=== PATIENT | female | born 1990 | race Caucasian/White ===

== ENCOUNTER 2016-05-14 17:53 | Emergency (ER) | payer OTHER ==
[~2016-05-14] VITALS: Wt 104.3 kg
[~2016-05-14 17:53] MED LIST: 'PARAFON FORTE500 M1 PO; ACETAMINOPHEN-H1 TA2 PO; ACYCLOVIR800 MG PO; ALBUTEROL0.09 MG/A2 IH; ALBUTEROL0.09 MG/A2 INH; ANAPROX DS550 MG PO; ANTIBIOTIC O500 U/GM T; ATIVAN1 MG PO; AUGMENTIN 875 M1 TAB PO; AVELOX400 MG PO; AVPAK AZITHROM250 M1 PO; BACTRIM DS 8001 TA1 PO; BIAXIN500 MG PO; CATAFLAM50 MG PO; CIPRO500 MG PO; CIPROFLOXACIN500 MG PO; CLARITIN10 MG PO; CLEOCIN150 MG PO; CLEOCIN40 GM PO; CLINDAMYCIN HC300 MG PO; COLACE100 MG PO; COMBIVENT1 ARO IH; DIFLUCAN100 MG PO; DIFLUCAN150 MG PO; DOXYCYCLINE MO100 MG PO; DOXYCYCLINE100 M2 PO; EC NAPROSYN500 MG PO; EES400 MG PO; FLEXERIL5 MG PO; HYDROCODONE BIT1 T11 PO; IBU-8800 MG PO; IRON325 M1 PO; KEFLEX500 MG PO; LABETALOL100 MG PO; LASIX10 MG/ML PO; LATU20TA PO; LOMOTIL 0.025 M1 TA1 PO; MACROBID100 M1 PO; MEDROL DOSEPAK4 MG PO; MOTRIN800 MG PO; NAPROSYN500 MG PO; NEURONTIN300 MG PO; NKHM; NKHM PO; NORCO 325 MG-51 TAB PO; NORCO 5-325 TA1 EACH PO; PERCOCET 325 MG1 TA2 PO; PERIDEX 480 ML480 ML PO; PHENERGAN W/ DE30 ML PO; PREDNISONE20 M1 PO; PREDNISONE20 MG PO; PRILOSEC10 MG PO; PROAIR HFA0.09 MG/AC INH; PROVENTIL0.09 MG/A1 INH; PROVENTIL0.09 MG/AC IH; PYRIDIUM200 MG PO; QVAR0.08 MG/AC INH; ROBITUSSIN AC 110 ML PO; SUDAFED60 MG PO; TESSALON PERLE200 MG PO; TOBRADEX 0.1%-0.5 ML OPH; TOBREX OPHTH S2.5 ML OPH; TRAMADOL HCL50 MG PO; ULTRAM50 MG PO; VIC-FORTE CAPSUL1 MG PO; VICO75300 PO; VICODIN 5-3001 EACH PO; ZITHROMAX Z PA250 MG PO; ZITHROMAX250 MG PO; ZOFRAN ODT4 MG PO; ZOFRAN ODT4 MG SL; ZYRTEC10 M2 PO; Zofran4 MG PO
[2016-05-14 19:20] LABS: BASO % 0.2 % (0.0-1.0); EOS # 0.4 10*3/uL (0.0-0.4); EOS % 2.8 % (1.0-4.0); HEMATOCRIT 44.8 % (37.0-47.0); HEMOGLOBIN 15.1 g/dl (12.0-16.0); LYMPH # 2.1 10*3/uL (1.3-4.4); LYMPH % 16.9 % (27.0-41.0); MEAN CELL VOLUME 84.5 fl (81.0-99.0); MEAN CORPUSCULAR HGB 28.5 pg (27.0-31.0); MEAN CORPUSCULAR HGB CONC 33.7 g/dl (33.0-37.0); MEAN PLATELET VOLUME 10.7 fl (9.6-12.3); MONO # 0.6 10*3/uL (0.1-1.0); MONO % 4.8 % (3.0-9.0); NEUT # 9.5 10*3/uL (2.3-7.9); PLATELET COUNT AUTOMATED 183 10*3/uL (130-400); WHITE BLOOD COUNT 12.6 10*3/uL (4.8-10.8)
[2016-05-14 19:48] LABS: ALBUMIN 3.7 gm/dl (3.1-4.5); ALKALINE PHOSPHATASE 92 U/L (45-117); BILIRUBIN, TOTAL 0.5 mg/dl (0.2-1.0); BUN 10 mg/dl (7-24); CARBON DIOXIDE 26 mmol/L (21-32); CHLORIDE 108 mmol/L (98-107); EST GLOM FILT AFRICAN AMERICAN > 60 ml/min; GLUCOSE 86 mg/dL (65-99); POTASSIUM 4.1 mmol/L (3.5-5.1); SGOT/AST 31 IU/L (3-35); SGPT/ALT 34 U/L (12-78); SODIUM 142 mmol/L (136-145); TOTAL PROTEIN 7.1 gm/dL (6.4-8.2)
[2016-05-14] MEDS ORDERED: ZOFRAN ODT4 MG SL (20:12)
[2016-07-23] MEDS ORDERED: MACROBID100 M1 PO (10:46)
[2016-07-23] MEDS ORDERED: ZOFRAN ODT4 MG SL (10:46)
== END 2016-05-14 20:25 | disposition home or self-care (01) ==
LOC: ED 17:53
PROVIDERS: Registered Nurse
DX: K52.9 Noninfective gastroenteritis and colitis, unspecified (principal); F41.9 Anxiety disorder, unspecified; J45.909 Unspecified asthma, uncomplicated; F17.200 Nicotine dependence, unspecified, uncomplicated; Z88.0 Allergy status to penicillin; Z88.1 Allergy status to other antibiotic agents; Z88.6 Allergy status to analgesic agent

== ENCOUNTER 2016-08-22 09:07 | Emergency (ER) | payer OTHER ==
[2016-08-22 09:41] LABS: BILIRUBIN NEGATIVE (NEGATIVE); BLOOD NEGATIVE (NEGATIVE); CLARITY CLEAR (CLEAR); COLOR YELLOW (YELLOW); GLUCOSE NEGATIVE (NEGATIVE); KETONE NEGATIVE (NEGATIVE); LEUKO ESTERASE NEGATIVE (NEGATIVE); NITRITE NEGATIVE (NEGATIVE); PROTEIN NEGATIVE (NEGATIVE); SPECIFIC GRAVITY <= 1.005 (1.005-1.030); UROBILINOGEN 0.2 E.U./dl (0.2-1.0)
[2016-08-22 09:51] LABS: BACTERIA TRACE; RBC 0-2 rbc/hpf (0-2); URINE REFLEX COMMENT NO (NO); WBC 0-2 wbc/hpf (0-5)
[2016-08-22] MEDS ORDERED: PREDNISONE10 MG PO (10:56)
[2016-08-22] MEDS ORDERED: ROBITUSSIN DM 105 ML PO (10:56)
== END 2016-08-22 11:13 | disposition home or self-care (01) ==
LOC: ED 09:07
PROVIDERS: Physician Assistant
DX: J40 Bronchitis, not specified as acute or chronic (principal); R30.0 Dysuria; F17.200 Nicotine dependence, unspecified, uncomplicated; Z98.51 Tubal ligation status; Z98.890 Other specified postprocedural states; Z90.49 Acquired absence of other specified parts of digestive tract; Z88.1 Allergy status to other antibiotic agents; Z88.6 Allergy status to analgesic agent; Z88.8 Allergy status to other drugs, medicaments and biological substances; Z88.0 Allergy status to penicillin

== ENCOUNTER 2016-08-28 09:39 | Emergency (ER) | payer OTHER ==
[~2016-08-28] VITALS: Ht 162.5 cm; Wt 104.3 kg
[~2016-08-28 09:39] MED LIST changes: +PREDNISONE10 MG PO; +ROBITUSSIN DM 105 ML PO
[2016-08-28] MEDS ORDERED: DOXYCYCLINE100 M3 PO (09:56)
[2016-08-29] MEDS ORDERED: HYDR25T PO (19:46)
[2016-08-29] MEDS ORDERED: PRILOSEC20 M1 PO (19:46)
[2016-08-29] MEDS ORDERED: ZYRTEC10 MG PO (19:47)
[2016-08-29] MEDS ORDERED: CARAFATE1 G1 PO (19:47)
[2016-08-29] MEDS ORDERED: ZANTAC 150150 MG PO (19:48)
[2016-08-29] MEDS ORDERED: Zofran4 MG PO (19:48)
== END 2016-08-28 10:10 | disposition home or self-care (01) ==
LOC: ED 09:39
DX: L02.416 Cutaneous abscess of left lower limb (principal); F41.9 Anxiety disorder, unspecified; J45.909 Unspecified asthma, uncomplicated; F17.200 Nicotine dependence, unspecified, uncomplicated; Z88.0 Allergy status to penicillin; Z88.1 Allergy status to other antibiotic agents; Z88.6 Allergy status to analgesic agent

== ENCOUNTER 2016-08-29 16:17 | Inpatient (IN) | payer OTHER ==
[~2016-08-29] VITALS: Ht 162.6 cm; Wt 104.0 kg
--- NOTE | ~2016-08-29 | O ---
[place], [place] OPERATIVE NOTE NAME: PENNY VARELA [facility] [id number] UNIT #: [id number] ROOM: [facility] DOCTOR: GET MCCALL MD BIRTHDATE: [birth year] DATE: 08/30/16 PREOPERATIVE DIAGNOSIS: Left groin abscess. POSTOPERATIVE DIAGNOSIS: Left groin abscess. PROCEDURE: Incision and drainage of left groin abscess. SURGEON: Get Mccall MD V BELT COVERER: PGY1. ANESTHESIA: MAC. INDICATIONS: This is a 26-year-old lady with a history of a left groin abscess who is here for the above-mentioned procedure. The procedure and its complications were explained to the patient in detail and she agreed to proceed. DESCRIPTION OF PROCEDURE: After identifying the patient, the patient was brought to the operating suite and laid in the supine position. After IV sedation was administered, the left extremity was flexed at the knee and placed in an abducted position. It was then painted and draped in the usual sterile fashion. A time-out procedure was called. An incision in the region of the most fluctuant area of the abscess was made. The skin and the subcutaneous tissue was incised and the abscess cavity was entered. A specimen of pus was sent for culture and sensitivity. Thereafter, the cavity of the abscess was then irrigated with saline and then packed with the help of half inch iodoform. A dressing was placed. The patient tolerated the procedure well. There were no complications and was taken to the recovery room in a stable fashion. Dr. Get Mccall, the attending surgeon, was present throughout the operating case. GET MCCALL MD CM:OPRECORD:OPERATIVE NOTE [id number] GET MCCALL MD 09/03/16 1435 RHONDA BOYCE [facility].R
[~2016-08-29 16:17] MED LIST changes: +DOXYCYCLINE100 M3 PO
[2016-08-29 16:27] VITALS: BP 122/80
[2016-08-29 17:17] LABS: BASO # 0.1 10*3/uL (0.0-0.1); BASO % 0.3 % (0.0-1.0); EOS # 0.2 10*3/uL (0.0-0.4); EOS % 0.8 % (1.0-4.0); HEMATOCRIT 46.3 % (37.0-47.0); HEMOGLOBIN 15.6 g/dl (12.0-16.0); IG # 0.1 10*3/uL (0.0-0.1); LYMPH # 2.2 10*3/uL (1.3-4.4); LYMPH % 11.4 % (27.0-41.0); MEAN CELL VOLUME 85.6 fl (81.0-99.0); MEAN CORPUSCULAR HGB 28.8 pg (27.0-31.0); MEAN CORPUSCULAR HGB CONC 33.7 g/dl (33.0-37.0); MEAN PLATELET VOLUME 10.7 fl (9.6-12.3); MONO # 1.2 10*3/uL (0.1-1.0); MONO % 6.1 % (3.0-9.0); NEUT # 15.5 10*3/uL (2.3-7.9); NEUT % 80.7 % (47.0-73.0); PLATELET COUNT AUTOMATED 205 10*3/uL (130-400); RED BLOOD COUNT 5.41 10*6/uL (4.10-5.10); RED CELL DISTRI WIDTH 12.8 % (0-14.5); WHITE BLOOD COUNT 19.2 10*3/uL (4.8-10.8)
[2016-08-29 17:34] LABS: ALBUMIN 3.8 gm/dl (3.1-4.5); BILIRUBIN, TOTAL 0.8 mg/dl (0.2-1.0); BUN 7 mg/dl (7-24); CARBON DIOXIDE 29 mmol/L (21-32); CHLORIDE 100 mmol/L (98-107); EST GLOM FILT AFRICAN AMERICAN > 60 ml/min; GLUCOSE 83 mg/dL (65-99); POTASSIUM 4.2 mmol/L (3.5-5.1); SGOT/AST 36 IU/L (3-35); SGPT/ALT 59 U/L (12-78); SODIUM 139 mmol/L (136-145); TOTAL PROTEIN 7.6 gm/dL (6.4-8.2)
[2016-08-29 17:36] LABS: ALKALINE PHOSPHATASE 133 U/L (45-117)
[2016-08-29 19:30] VITALS: BP 130/60
[2016-08-29] MEDS ORDERED: PRILOSEC20 M1 PO (19:46)
[2016-08-29] MEDS ORDERED: HYDR25T PO (19:46)
[2016-08-29] MEDS ORDERED: CARAFATE1 G1 PO (19:47)
[2016-08-29] MEDS ORDERED: ZYRTEC10 MG PO (19:47)
[2016-08-29] MEDS ORDERED: Zofran4 MG PO (19:48)
[2016-08-29] MEDS ORDERED: ZANTAC 150150 MG PO (19:48)
[2016-08-30] VITALS (7 sets, daily range): BP systolic 107–153; BP diastolic 55–85
[2016-08-30 06:21] LABS: BASO # 0.1 10*3/uL (0.0-0.1); BASO % 0.3 % (0.0-1.0); EOS # 0.3 10*3/uL (0.0-0.4); EOS % 1.5 % (1.0-4.0); HEMATOCRIT 41.5 % (37.0-47.0); HEMOGLOBIN 13.7 g/dl (12.0-16.0); IG # 0.1 10*3/uL (0.0-0.1); LYMPH % 18.1 % (27.0-41.0); MEAN CELL VOLUME 87.4 fl (81.0-99.0); MEAN CORPUSCULAR HGB 28.8 pg (27.0-31.0); MEAN PLATELET VOLUME 11.2 fl (9.6-12.3); MONO # 1.3 10*3/uL (0.1-1.0); MONO % 8.1 % (3.0-9.0); NEUT # 11.8 10*3/uL (2.3-7.9); NEUT % 71.2 % (47.0-73.0); PLATELET COUNT AUTOMATED 175 10*3/uL (130-400); RED BLOOD COUNT 4.75 10*6/uL (4.10-5.10); RED CELL DISTRI WIDTH 12.7 % (0-14.5); WHITE BLOOD COUNT 16.5 10*3/uL (4.8-10.8)
[2016-08-30 06:29] LABS: PROTHROMBIN TIME 10.2 SECONDS (9.0-12.4)
[2016-08-30 06:30] LABS: HEMOGLOBIN A1c 4.8 % (4.8-5.6)
[2016-08-30 06:53] LABS: ALBUMIN 3.1 gm/dl (3.1-4.5); ALKALINE PHOSPHATASE 120 U/L (45-117); BILIRUBIN, TOTAL 0.7 mg/dl (0.2-1.0); BUN 8 mg/dl (7-24); CARBON DIOXIDE 32 mmol/L (21-32); CHLORIDE 104 mmol/L (98-107); CHOLESTEROL 109 mg/dL (<200); EST GLOM FILT AFRICAN AMERICAN > 60 ml/min; GLUCOSE 89 mg/dL (65-99); HDL CHOLESTEROL 45 mg/dl (40-60); LDL CHOLESTEROL 41 mg/dL (9-159); MAGNESIUM 1.8 mg/dL (1.5-2.1); PHOSPHOROUS 3.4 mg/dL (2.5-4.9); SGOT/AST 26 IU/L (3-35); SGPT/ALT 49 U/L (12-78); SODIUM 141 mmol/L (136-145); TOTAL PROTEIN 6.5 gm/dL (6.4-8.2); TRIGLYCERIDES 114 mg/dl (<150); VLDL CHOLESTEROL 23 mg/dL (6-40)
[2016-08-30 07:33] LABS: FOLIC ACID 5.66 ng/mL (>5.38); VITAMIN D, 25-HYDROXY 23.7 ng/mL (30-100)
[2016-08-31] VITALS: BP 153/68
[2016-08-31 08:00] VITALS: BP 126/62
[2016-08-31 08:51] LABS: BASO % 0.2 % (0.0-1.0); EOS # 0.2 10*3/uL (0.0-0.4); EOS % 1.4 % (1.0-4.0); HEMATOCRIT 40.4 % (37.0-47.0); HEMOGLOBIN 13.4 g/dl (12.0-16.0); IG # 0.1 10*3/uL (0.0-0.1); LYMPH # 2.6 10*3/uL (1.3-4.4); LYMPH % 17.6 % (27.0-41.0); MEAN CELL VOLUME 87.3 fl (81.0-99.0); MEAN CORPUSCULAR HGB 28.9 pg (27.0-31.0); MEAN CORPUSCULAR HGB CONC 33.2 g/dl (33.0-37.0); MEAN PLATELET VOLUME 10.8 fl (9.6-12.3); MONO # 1.1 10*3/uL (0.1-1.0); MONO % 7.7 % (3.0-9.0); NEUT # 10.7 10*3/uL (2.3-7.9); NEUT % 72.3 % (47.0-73.0); PLATELET COUNT AUTOMATED 189 10*3/uL (130-400); RED BLOOD COUNT 4.63 10*6/uL (4.10-5.10); RED CELL DISTRI WIDTH 12.7 % (0-14.5); WHITE BLOOD COUNT 14.7 10*3/uL (4.8-10.8)
[2016-08-31 09:02] LABS: BUN 6 mg/dl (7-24); CARBON DIOXIDE 28 mmol/L (21-32); CHLORIDE 107 mmol/L (98-107); EST GLOM FILT AFRICAN AMERICAN > 60 ml/min; GLUCOSE 85 mg/dL (65-99); SODIUM 142 mmol/L (136-145)
[2016-08-31] MEDS ORDERED: CEPHALEXIN500 M1 PO (11:10)
== END 2016-08-31 12:42 | disposition home or self-care (01) | DRG 580 ==
LOC: ED 16:17 → 4E 18:18 → EDHOLD 18:18 → 4E 18:45
PROVIDERS: Family Medicine; Internal Medicine; Physician Assistant
PROC: 0H99XZZ Drainage of Perineum Skin, External Approach (ICD-10-PCS; principal; 2016-08-30)
DX: L03.314 Cellulitis of groin (principal); E44.0 Moderate protein-calorie malnutrition; K75.4 Autoimmune hepatitis; E83.51 Hypocalcemia; E66.01 Morbid (severe) obesity due to excess calories; L02.214 Cutaneous abscess of groin; D72.829 Elevated white blood cell count, unspecified; F41.9 Anxiety disorder, unspecified; I10 Essential (primary) hypertension; J45.909 Unspecified asthma, uncomplicated; R53.82 Chronic fatigue, unspecified; F17.210 Nicotine dependence, cigarettes, uncomplicated; Z68.39 Body mass index [BMI] 39.0-39.9, adult; Z71.6 Tobacco abuse counseling; Z98.51 Tubal ligation status; Z98.891 History of uterine scar from previous surgery; Z90.49 Acquired absence of other specified parts of digestive tract; Z82.49 Family history of ischemic heart disease and other diseases of the circulatory system; Z81.2 Family history of tobacco abuse and dependence; Z82.3 Family history of stroke; Z80.8 Family history of malignant neoplasm of other organs or systems; Z88.0 Allergy status to penicillin; Z88.1 Allergy status to other antibiotic agents; Z88.2 Allergy status to sulfonamides; Z88.8 Allergy status to other drugs, medicaments and biological substances; Z79.899 Other long term (current) drug therapy

== ENCOUNTER 2016-09-02 10:47 | Emergency (ER) | payer OTHER ==
[~2016-09-02] VITALS: Ht 162.5 cm; Wt 104.3 kg
[~2016-09-02 10:47] MED LIST changes: +CARAFATE1 G1 PO; +CEPHALEXIN500 M1 PO; +HYDR25T PO; +PRILOSEC20 M1 PO; +ZANTAC 150150 MG PO; +ZYRTEC10 MG PO
[2016-09-02 11:21] LABS: BASO % 0.3 % (0.0-1.0); EOS # 0.1 10*3/uL (0.0-0.4); EOS % 0.9 % (1.0-4.0); HEMATOCRIT 44.5 % (37.0-47.0); HEMOGLOBIN 14.8 g/dl (12.0-16.0); IG # 0.1 10*3/uL (0.0-0.1); LYMPH # 1.8 10*3/uL (1.3-4.4); LYMPH % 13.1 % (27.0-41.0); MEAN CELL VOLUME 86.2 fl (81.0-99.0); MEAN CORPUSCULAR HGB 28.7 pg (27.0-31.0); MEAN CORPUSCULAR HGB CONC 33.3 g/dl (33.0-37.0); MEAN PLATELET VOLUME 10.9 fl (9.6-12.3); MONO # 0.8 10*3/uL (0.1-1.0); MONO % 5.8 % (3.0-9.0); NEUT # 10.9 10*3/uL (2.3-7.9); NEUT % 79.3 % (47.0-73.0); PLATELET COUNT AUTOMATED 225 10*3/uL (130-400); RED BLOOD COUNT 5.16 10*6/uL (4.10-5.10); RED CELL DISTRI WIDTH 12.4 % (0-14.5); WHITE BLOOD COUNT 13.7 10*3/uL (4.8-10.8)
[2016-09-02 11:36] LABS: ALBUMIN 3.6 gm/dl (3.1-4.5); ALKALINE PHOSPHATASE 175 U/L (45-117); BILIRUBIN, TOTAL 0.4 mg/dl (0.2-1.0); BUN 7 mg/dl (7-24); CARBON DIOXIDE 26 mmol/L (21-32); CHLORIDE 108 mmol/L (98-107); EST GLOM FILT AFRICAN AMERICAN > 60 ml/min; GLUCOSE 97 mg/dL (65-99); POTASSIUM 3.8 mmol/L (3.5-5.1); SGOT/AST 34 IU/L (3-35); SGPT/ALT 55 U/L (12-78); SODIUM 144 mmol/L (136-145); TOTAL PROTEIN 7.8 gm/dL (6.4-8.2)
[2016-09-02] MEDS ORDERED: DIFLUCAN150 MG PO (12:09)
[2016-09-02] MEDS ORDERED: BACTRIM DS 8001 TA1 PO (12:09)
== END 2016-09-02 12:14 | disposition home or self-care (01) ==
LOC: ED 10:47
PROVIDERS: Nurse Practitioner Family
DX: Z48.01 Encounter for change or removal of surgical wound dressing (principal); R03.0 Elevated blood-pressure reading, without diagnosis of hypertension; F41.9 Anxiety disorder, unspecified; J45.909 Unspecified asthma, uncomplicated; I10 Essential (primary) hypertension; F17.200 Nicotine dependence, unspecified, uncomplicated; Z79.899 Other long term (current) drug therapy; Z88.0 Allergy status to penicillin; Z88.1 Allergy status to other antibiotic agents; Z88.6 Allergy status to analgesic agent

== ENCOUNTER 2016-12-20 20:35 | Emergency (ER) | payer OTHER ==
[~2016-12-20] VITALS: Ht 162.5 cm; Wt 104.3 kg
[2016-12-20] MEDS ORDERED: CLARITIN10 MG PO (20:51)
[2016-12-20] MEDS ORDERED: 24 HOUR ALLER15.8 ML NAS (20:51)
== END 2016-12-20 22:39 | disposition home or self-care (01) ==
LOC: ED 20:35
DX: J30.2 Other seasonal allergic rhinitis (principal); H57.8 Other specified disorders of eye and adnexa; M54.9 Dorsalgia, unspecified; F17.200 Nicotine dependence, unspecified, uncomplicated; Z88.0 Allergy status to penicillin; Z88.1 Allergy status to other antibiotic agents; Z88.6 Allergy status to analgesic agent; Z79.899 Other long term (current) drug therapy

== ENCOUNTER 2017-02-25 08:25 | Emergency (ER) | payer OTHER ==
[~2017-02-25] VITALS: Ht 162.5 cm; Wt 106.6 kg
[~2017-02-25 08:25] MED LIST changes: +24 HOUR ALLER15.8 ML NAS
== END 2017-02-25 09:09 | disposition home or self-care (01) ==
LOC: ED 08:25
DX: M25.562 Pain in left knee (principal); F17.200 Nicotine dependence, unspecified, uncomplicated; J45.909 Unspecified asthma, uncomplicated; I10 Essential (primary) hypertension; E66.01 Morbid (severe) obesity due to excess calories; Z98.51 Tubal ligation status; Z98.890 Other specified postprocedural states; Z90.49 Acquired absence of other specified parts of digestive tract; Z79.899 Other long term (current) drug therapy; Z88.0 Allergy status to penicillin; Z88.1 Allergy status to other antibiotic agents; Z88.6 Allergy status to analgesic agent; X50.1XXA Overexertion from prolonged static or awkward postures, initial encounter; Y93.01 Activity, walking, marching and hiking; Y92.89 Other specified places as the place of occurrence of the external cause; Y99.9 Unspecified external cause status

== ENCOUNTER 2017-03-19 16:49 | Emergency (ER) | payer OTHER ==
[~2017-03-19] VITALS: Ht 162.5 cm; Wt 106.6 kg
[2017-03-19] MEDS ORDERED: VIBRAMYCIN100 MG PO (18:18)
[2017-03-19] MEDS ORDERED: MEDROL DOSEPAK4 MG PO (18:18)
[2017-03-19] MEDS ORDERED: GUAIFEN-CODEINE5 ML PO (18:21)
== END 2017-03-19 18:25 | disposition home or self-care (01) ==
LOC: ED 16:49
DX: J45.909 Unspecified asthma, uncomplicated (principal); H65.113 Acute and subacute allergic otitis media (mucoid) (sanguinous) (serous), bilateral; F17.200 Nicotine dependence, unspecified, uncomplicated; Z90.49 Acquired absence of other specified parts of digestive tract; I10 Essential (primary) hypertension; Z88.0 Allergy status to penicillin; Z88.1 Allergy status to other antibiotic agents; Z88.2 Allergy status to sulfonamides; Z88.6 Allergy status to analgesic agent

== ENCOUNTER 2017-06-20 08:27 | Emergency (ER) | payer OTHER ==
[~2017-06-20] VITALS: Ht 162.5 cm; Wt 104.3 kg
[~2017-06-20 08:27] MED LIST changes: +GUAIFEN-CODEINE5 ML PO; +VIBRAMYCIN100 MG PO
[2017-06-20 08:49] LABS: BILIRUBIN NEGATIVE (NEGATIVE); BLOOD 2+ (NEGATIVE); CLARITY CLOUDY (CLEAR); COLOR YELLOW (YELLOW); GLUCOSE NEGATIVE (NEGATIVE); KETONE NEGATIVE (NEGATIVE); LEUKO ESTERASE NEGATIVE (NEGATIVE); NITRITE NEGATIVE (NEGATIVE); PH 6.5 (5.0-9.0); UROBILINOGEN 0.2 E.U./dl (0.2-1.0)
[2017-06-20 09:12] LABS: BACTERIA 2+; EPITHELIAL CELLS 25-35
[2017-06-20] MEDS ORDERED: Motrin,Rufen800 MG PO (11:16)
== END 2017-06-20 11:42 | disposition home or self-care (01) ==
LOC: ED 08:27
PROVIDERS: Emergency Medicine
DX: R31.9 Hematuria, unspecified (principal); M54.5 Low back pain; F17.200 Nicotine dependence, unspecified, uncomplicated; Z90.49 Acquired absence of other specified parts of digestive tract; F41.9 Anxiety disorder, unspecified; I10 Essential (primary) hypertension; E66.01 Morbid (severe) obesity due to excess calories; Z88.0 Allergy status to penicillin; Z88.1 Allergy status to other antibiotic agents; Z88.5 Allergy status to narcotic agent; Z88.2 Allergy status to sulfonamides

== ENCOUNTER 2017-07-13 20:41 | Emergency (ER) | payer OTHER ==
[~2017-07-13 20:41] MED LIST changes: +Motrin,Rufen800 MG PO
[2017-07-13] MEDS ORDERED: OMNICEF300 MG PO (21:05)
[2017-07-13] MEDS ORDERED: Motrin,Rufen800 MG PO (21:06)
[2017-07-14] MEDS ORDERED: FLONASE ALLERG9.9 ML NS (22:26)
== END 2017-07-13 21:18 | disposition home or self-care (01) ==
LOC: ED 20:41
DX: K08.89 Other specified disorders of teeth and supporting structures (principal); H66.93 Otitis media, unspecified, bilateral; F17.200 Nicotine dependence, unspecified, uncomplicated; Z98.51 Tubal ligation status; Z90.49 Acquired absence of other specified parts of digestive tract; Z98.890 Other specified postprocedural states; Z88.0 Allergy status to penicillin; Z88.1 Allergy status to other antibiotic agents; Z88.6 Allergy status to analgesic agent; Z88.8 Allergy status to other drugs, medicaments and biological substances

== ENCOUNTER 2017-07-14 19:52 | Emergency (ER) | payer OTHER ==
[~2017-07-14] VITALS: Ht 162.5 cm; Wt 104.3 kg
[~2017-07-14 19:52] MED LIST changes: +OMNICEF300 MG PO
[2017-07-14 21:52] LABS: BASO # 0.1 10*3/uL (0.0-0.1); BASO % 0.7 % (0.0-1.0); EOS # 0.7 10*3/uL (0.0-0.4); EOS % 6.4 % (1.0-4.0); HEMATOCRIT 40.8 % (37.0-47.0); HEMOGLOBIN 13.6 g/dl (12.0-16.0); LYMPH # 2.9 10*3/uL (1.3-4.4); LYMPH % 28.1 % (27.0-41.0); MEAN CELL VOLUME 86.1 fl (81.0-99.0); MEAN CORPUSCULAR HGB 28.7 pg (27.0-31.0); MEAN CORPUSCULAR HGB CONC 33.3 g/dl (33.0-37.0); MEAN PLATELET VOLUME 11.3 fl (9.6-12.3); MONO # 0.9 10*3/uL (0.1-1.0); MONO % 8.4 % (3.0-9.0); NEUT # 5.7 10*3/uL (2.3-7.9); PLATELET COUNT AUTOMATED 185 10*3/uL (130-400); RED BLOOD COUNT 4.74 10*6/uL (4.10-5.10); WHITE BLOOD COUNT 10.2 10*3/uL (4.8-10.8)
[2017-07-14 22:08] LABS: ALBUMIN 3.5 gm/dl (3.1-4.5); ALKALINE PHOSPHATASE 112 U/L (45-117); BUN 8 mg/dl (7-24); CHLORIDE 106 mmol/L (98-107); CREATININE 0.72 mg/dL (0.55-1.02); SGOT/AST 29 IU/L (3-35); SGPT/ALT 46 U/L (12-78); SODIUM 140 mmol/L (136-145); TOTAL PROTEIN 6.6 gm/dL (6.4-8.2)
[2017-07-14] MEDS ORDERED: FLONASE ALLERG9.9 ML NS (22:26)
== END 2017-07-14 22:43 | disposition home or self-care (01) ==
LOC: ED 19:52
PROVIDERS: Physician Assistant
DX: J01.90 Acute sinusitis, unspecified (principal); H92.03 Otalgia, bilateral; R05 Cough; R11.0 Nausea; K08.89 Other specified disorders of teeth and supporting structures; F17.200 Nicotine dependence, unspecified, uncomplicated; Z88.0 Allergy status to penicillin; Z88.1 Allergy status to other antibiotic agents; Z88.6 Allergy status to analgesic agent

== ENCOUNTER → 2017-10-09 | Outpatient (CLI) | payer OTHER ==
[~2017-10-09] MED LIST changes: +CLINDAMYCIN150 MG PO; +FLAGYL500 MG PO; +FLONASE ALLERG9.9 ML NS
[2017-10-09 19:07] LABS: PTH INTACT 45.7 pg/mL (14.0-72.0); VITAMIN D, 25-HYDROXY 19.3 ng/mL (30-100)
== END ==
LOC: LAB 17:54
DX: E53.8 Deficiency of other specified B group vitamins (principal); E55.9 Vitamin D deficiency, unspecified; E58 Dietary calcium deficiency

== ENCOUNTER 2017-10-22 11:13 | Emergency (ER) | payer OTHER ==
[~2017-10-22] VITALS: Ht 162.5 cm; Wt 107.5 kg
[~2017-10-22 11:13] MED LIST changes: -CLINDAMYCIN150 MG PO; -FLAGYL500 MG PO
[2017-10-22 11:39] LABS: BASO # 0.1 10*3/uL (0.0-0.1); BASO % 0.6 % (0.0-1.0); EOS # 0.4 10*3/uL (0.0-0.4); EOS % 3.4 % (1.0-4.0); HEMATOCRIT 42.5 % (37.0-47.0); HEMOGLOBIN 14.5 g/dl (12.0-16.0); LYMPH # 2.2 10*3/uL (1.3-4.4); LYMPH % 20.7 % (27.0-41.0); MEAN CELL VOLUME 85.5 fl (81.0-99.0); MEAN CORPUSCULAR HGB 29.2 pg (27.0-31.0); MEAN CORPUSCULAR HGB CONC 34.1 g/dl (33.0-37.0); MEAN PLATELET VOLUME 10.5 fl (9.6-12.3); MONO # 0.8 10*3/uL (0.1-1.0); MONO % 7.4 % (3.0-9.0); NEUT # 7.2 10*3/uL (2.3-7.9); NEUT % 67.4 % (47.0-73.0); PLATELET COUNT AUTOMATED 184 10*3/uL (130-400); RED BLOOD COUNT 4.97 10*6/uL (4.10-5.10); RED CELL DISTRI WIDTH 12.1 % (0-14.5); WHITE BLOOD COUNT 10.7 10*3/uL (4.8-10.8)
[2017-10-22 11:53] LABS: ALBUMIN 3.6 gm/dl (3.1-4.5); ALKALINE PHOSPHATASE 108 U/L (45-117); BUN 5 mg/dl (7-24); CHLORIDE 108 mmol/L (98-107); CREATININE 0.83 mg/dL (0.55-1.02); POTASSIUM 4.1 mmol/L (3.5-5.1); SGOT/AST 23 IU/L (3-35); SGPT/ALT 31 U/L (12-78); SODIUM 139 mmol/L (136-145); TOTAL PROTEIN 6.9 gm/dL (6.4-8.2)
== END 2017-10-22 13:46 | disposition home or self-care (01) ==
LOC: ED 11:13
PROVIDERS: Family Medicine
DX: K52.9 Noninfective gastroenteritis and colitis, unspecified (principal); J45.909 Unspecified asthma, uncomplicated; R53.83 Other fatigue; I10 Essential (primary) hypertension; E66.01 Morbid (severe) obesity due to excess calories; F17.200 Nicotine dependence, unspecified, uncomplicated; Z98.890 Other specified postprocedural states; Z98.51 Tubal ligation status; Z90.49 Acquired absence of other specified parts of digestive tract; Z88.0 Allergy status to penicillin; Z88.1 Allergy status to other antibiotic agents; Z88.6 Allergy status to analgesic agent; Z88.8 Allergy status to other drugs, medicaments and biological substances; Z79.899 Other long term (current) drug therapy

== ENCOUNTER → 2017-10-31 | Outpatient (CLI) | payer OTHER ==
[~2017-10-31] MED LIST changes: +CLINDAMYCIN150 MG PO; +FLAGYL500 MG PO; +VISTARIL25 MG PO
== END ==
LOC: US 10-30 16:00
DX: N94.10 Unspecified dyspareunia (principal); R10.32 Left lower quadrant pain

== ENCOUNTER 2017-11-21 23:32 | Emergency (ER) | payer OTHER ==
[~2017-11-21] VITALS: Ht 162.5 cm; Wt 108.9 kg
[~2017-11-21 23:32] MED LIST changes: -CLINDAMYCIN150 MG PO; -FLAGYL500 MG PO; -VISTARIL25 MG PO
[2017-11-21] MEDS ORDERED: FLAGYL500 MG PO (23:36)
[2017-11-22] MEDS ORDERED: Motrin,Rufen800 MG PO (00:29)
[2017-11-22] MEDS ORDERED: CLINDAMYCIN150 MG PO (00:29)
[2018-01-01] MEDS ORDERED: CLINDAMYCIN HC300 MG PO (02:22)
== END 2017-11-22 00:41 | disposition home or self-care (01) ==
LOC: ED 23:32
DX: L02.214 Cutaneous abscess of groin (principal); F17.200 Nicotine dependence, unspecified, uncomplicated; I10 Essential (primary) hypertension; R53.83 Other fatigue; E66.01 Morbid (severe) obesity due to excess calories; J45.909 Unspecified asthma, uncomplicated; Z79.899 Other long term (current) drug therapy; Z88.8 Allergy status to other drugs, medicaments and biological substances; Z98.51 Tubal ligation status; Z98.890 Other specified postprocedural states; Z90.49 Acquired absence of other specified parts of digestive tract; Z88.0 Allergy status to penicillin; Z88.6 Allergy status to analgesic agent

== ENCOUNTER 2017-12-03 10:37 | Emergency (ER) | payer OTHER ==
[~2017-12-03] VITALS: Ht 167.6 cm; Wt 122.5 kg
--- NOTE | ~2017-12-03 | EKG ---
[place], [place] ELECTROCARDIOGRAM REPORT NAME: PENNY VARELA UNIT #: [id number] ROOM: DOCTOR: JARED DRAFT REPORT BIRTHDATE: [birth year] [facility] Test Date: 2017-12-03 Test Time: 10:43:35 Pat Name: PENNY VARELA Department: Room: Gender: F [employer] W[employer]: CYNDY : 1990 Requested By: CAROLINA LAL Order Number: [id number] Reading MD: Suzanne Pulido MD Measurements Intervals [place] Rate: 86 P: 50 NM: 152 QRS: 31 QRSD: 89 T: -17 QT: 379 QTc: 454 Interpretive Statements Sinus rhythm Borderline T abnormalities, inferior leads Electronically Signed On 12-09-2017 14:12:37 PDT by Suzanne Pulido MD CM:EKGRPT:ELECTROCARDIOGRAM REPORT [id number] CAROLINA KEVIN DRAFT REPORT CAROLINA LAL DO
[~2017-12-03 10:37] MED LIST changes: +CLINDAMYCIN150 MG PO; +FLAGYL500 MG PO
[2017-12-03 10:54] LABS: BASO # 0.1 10*3/uL (0.0-0.1); BASO % 0.6 % (0.0-1.0); EOS # 0.5 10*3/uL (0.0-0.4); EOS % 3.7 % (1.0-4.0); HEMATOCRIT 43.6 % (37.0-47.0); HEMOGLOBIN 14.6 g/dl (12.0-16.0); LYMPH # 3.1 10*3/uL (1.3-4.4); LYMPH % 24.6 % (27.0-41.0); MEAN CELL VOLUME 86.2 fl (81.0-99.0); MEAN CORPUSCULAR HGB 28.9 pg (27.0-31.0); MEAN CORPUSCULAR HGB CONC 33.5 g/dl (33.0-37.0); MEAN PLATELET VOLUME 11.2 fl (9.6-12.3); MONO # 0.8 10*3/uL (0.1-1.0); MONO % 6.3 % (3.0-9.0); NEUT # 8.1 10*3/uL (2.3-7.9); NEUT % 64.3 % (47.0-73.0); PLATELET COUNT AUTOMATED 215 10*3/uL (130-400); RED BLOOD COUNT 5.06 10*6/uL (4.10-5.10); RED CELL DISTRI WIDTH 12.4 % (0-14.5); WHITE BLOOD COUNT 12.6 10*3/uL (4.8-10.8)
[2017-12-03 11:02] LABS: ACT PARTIAL THROMBO TIME 25.2 SECONDS (20.8-31.5); INTERNATIONAL NORM RATIO 0.9 (2.0-3.5)
[2017-12-03 11:19] LABS: ALBUMIN 3.9 gm/dl (3.1-4.5); ALKALINE PHOSPHATASE 163 U/L (45-117); BUN 6 mg/dl (7-24); CHLORIDE 107 mmol/L (98-107); CREATININE 0.96 mg/dL (0.55-1.02); POTASSIUM 3.8 mmol/L (3.5-5.1); SGOT/AST 61 IU/L (3-35); SGPT/ALT 89 U/L (12-78); SODIUM 141 mmol/L (136-145); TROPONIN I < 0.015 ng/ml (<0.045)
[2017-12-03] MEDS ORDERED: PREDNISONE20 M1 PO (13:52)
[2017-12-03] MEDS ORDERED: VISTARIL25 MG PO (13:52)
[2018-01-01] MEDS ORDERED: CLINDAMYCIN HC300 MG PO (02:22)
== END 2017-12-03 14:40 | disposition home or self-care (01) ==
LOC: ED 10:37
PROVIDERS: Emergency Medicine
DX: J40 Bronchitis, not specified as acute or chronic (principal); F41.9 Anxiety disorder, unspecified; F17.200 Nicotine dependence, unspecified, uncomplicated; Z88.1 Allergy status to other antibiotic agents; Z88.0 Allergy status to penicillin; Z88.6 Allergy status to analgesic agent

== ENCOUNTER → 2018-02-22 | Outpatient (CLI) | payer OTHER ==
[~2018-02-22] MED LIST changes: +FLONASE ALLERG9.9 ML NAS; +VISTARIL25 MG PO
== END | disposition home or self-care (01) ==
LOC: LAB 12:18
DX: E55.9 Vitamin D deficiency, unspecified (principal)

== ENCOUNTER → 2018-03-28 | Outpatient (CLI) | payer OTHER ==
[2018-03-28 19:26] LABS: ALBUMIN 3.5 gm/dl (3.1-4.5); ALKALINE PHOSPHATASE 140 U/L (45-117); BILIRUBIN, DIRECT < 0.1 mg/dL (0.0-0.2); SGOT/AST 39 IU/L (3-35); SGPT/ALT 55 U/L (12-78); TOTAL PROTEIN 7.1 gm/dL (6.4-8.2)
[2018-03-29 06:11] LABS: HEPATITIS B SURFACE AG Negative (Negative)
[2018-03-29 14:10] LABS: ANTI-SMOOTH MUSCLE ANTIBODY 6 Units (0-19)
== END | disposition home or self-care (01) ==
LOC: LAB 18:22
PROVIDERS: Internal Medicine Gastroenterology
DX: R94.5 Abnormal results of liver function studies (principal)

== ENCOUNTER 2018-04-14 10:04 | Emergency (ER) | payer OTHER ==
[~2018-04-14] VITALS: Wt 108.9 kg
[~2018-04-14 10:04] MED LIST changes: -FLONASE ALLERG9.9 ML NAS
[2018-04-14 10:31] LABS: BILIRUBIN 1+ (NEGATIVE); BLOOD NEGATIVE (NEGATIVE); CLARITY SL CLOUDY (CLEAR); COLOR YELLOW (YELLOW); GLUCOSE NEGATIVE (NEGATIVE); KETONE TRACE (NEGATIVE); LEUKO ESTERASE NEGATIVE (NEGATIVE); NITRITE NEGATIVE (NEGATIVE); UROBILINOGEN 0.2 E.U./dl (0.2-1.0)
[2018-04-14 10:45] LABS: BACTERIA 3+; EPITHELIAL CELLS 20-30
[2018-04-14] MEDS ORDERED: FLONASE ALLERG9.9 ML NAS (11:12)
[2018-04-14] MEDS ORDERED: ZITHROMAX250 MG PO (11:12)
[2018-04-14] MEDS ORDERED: ZYRTEC10 MG PO (11:12)
== END 2018-04-14 11:16 | disposition home or self-care (01) ==
LOC: ED 10:04
PROVIDERS: Nurse Practitioner Family
DX: J01.90 Acute sinusitis, unspecified (principal); R19.7 Diarrhea, unspecified; F17.200 Nicotine dependence, unspecified, uncomplicated; Z88.0 Allergy status to penicillin; Z88.1 Allergy status to other antibiotic agents; Z88.6 Allergy status to analgesic agent; Z88.2 Allergy status to sulfonamides; Z90.49 Acquired absence of other specified parts of digestive tract

== ENCOUNTER → 2018-06-17 | Outpatient (CLI) | payer OTHER ==
[~2018-06-17] MED LIST changes: +DELTASONE20 M1 PO; +FLONASE ALLERG9.9 ML NAS; +HYDROXYZINE HCL25 MG PO; +PYRIDIUM200 M1 PO
[2018-06-17 11:47] LABS: ALBUMIN 3.5 gm/dl (3.1-4.5); BILIRUBIN, DIRECT 0.1 mg/dL (0.0-0.2)
[2018-06-18 07:07] LABS: HEPATITIS B SURFACE AG Negative (Negative)
[2018-06-18 12:08] LABS: ANTI-SMOOTH MUSCLE ANTIBODY 7 Units (0-19)
== END | disposition home or self-care (01) ==
LOC: LAB 10:43
PROVIDERS: Internal Medicine Gastroenterology
DX: R94.5 Abnormal results of liver function studies (principal)

== ENCOUNTER 2018-09-11 15:52 | Emergency (ER) | payer OTHER ==
[~2018-09-11] VITALS: Ht 162.5 cm; Wt 113.4 kg
[2018-09-11] MEDS ORDERED: ZOFRAN4 MG PO (16:30)
[2018-09-11] MEDS ORDERED: ROBAXIN500 M1 PO (16:30)
[2018-10-11] MEDS ORDERED: CLINDAMYCIN HC300 MG PO (21:29)
== END 2018-09-11 16:30 | disposition home or self-care (01) ==
LOC: ED 15:52
DX: M54.2 Cervicalgia (principal); R11.2 Nausea with vomiting, unspecified; R19.7 Diarrhea, unspecified; F17.200 Nicotine dependence, unspecified, uncomplicated; Z88.0 Allergy status to penicillin; Z88.1 Allergy status to other antibiotic agents; Z88.6 Allergy status to analgesic agent; Z88.2 Allergy status to sulfonamides

== ENCOUNTER 2018-11-18 17:59 | Emergency (ER) | payer OTHER ==
[~2018-11-18] VITALS: Ht 162.5 cm; Wt 112.5 kg
[~2018-11-18 17:59] MED LIST changes: +ROBAXIN500 M1 PO; +ZOFRAN4 MG PO
[2018-11-18 18:25] LABS: BILIRUBIN NEGATIVE (NEGATIVE); BLOOD NEGATIVE (NEGATIVE); CLARITY SL CLOUDY (CLEAR); COLOR YELLOW (YELLOW); GLUCOSE NEGATIVE (NEGATIVE); KETONE NEGATIVE (NEGATIVE); LEUKO ESTERASE NEGATIVE (NEGATIVE); NITRITE NEGATIVE (NEGATIVE); SPECIFIC GRAVITY <= 1.005 (1.005-1.030); UROBILINOGEN 0.2 E.U./dl (0.2-1.0)
[2018-11-18 18:34] LABS: BACTERIA TRACE; RBC 0-2 rbc/hpf (0-2)
[2018-11-18] MEDS ORDERED: PYRIDIUM100 MG PO (19:04)
[2018-11-18] MEDS ORDERED: MACROBID100 M1 PO (19:04)
[2019-01-04] MEDS ORDERED: FLONASE ALLERG9.9 ML NAS (15:52)
[2019-01-04] MEDS ORDERED: CLARITIN10 MG PO (15:52)
[2019-01-04] MEDS ORDERED: PREDNISONE50 MG PO (15:52)
[2019-01-04] MEDS ORDERED: DIFLUCAN150 MG PO (15:52)
== END 2018-11-18 19:17 | disposition home or self-care (01) ==
LOC: ED 17:59
PROVIDERS: Nurse Practitioner Family
DX: R30.0 Dysuria (principal); R10.2 Pelvic and perineal pain; I10 Essential (primary) hypertension; E66.01 Morbid (severe) obesity due to excess calories; J45.909 Unspecified asthma, uncomplicated; F17.200 Nicotine dependence, unspecified, uncomplicated; Z88.0 Allergy status to penicillin; Z88.1 Allergy status to other antibiotic agents; Z88.6 Allergy status to analgesic agent; Z88.2 Allergy status to sulfonamides; Z98.890 Other specified postprocedural states; Z90.49 Acquired absence of other specified parts of digestive tract; Z98.51 Tubal ligation status

== ENCOUNTER 2018-12-16 22:28 | Emergency (ER) | payer OTHER ==
[~2018-12-16] VITALS: Ht 162.5 cm; Wt 113.4 kg
[~2018-12-16 22:28] MED LIST changes: +PYRIDIUM100 MG PO
[2018-12-17 00:14] LABS: BASO # 0.1 10*3/uL (0.0-0.1); BASO % 0.6 % (0.0-1.0); EOS # 0.6 10*3/uL (0.0-0.4); EOS % 4.3 % (1.0-4.0); HEMATOCRIT 42.8 % (37.0-47.0); HEMOGLOBIN 14.4 g/dl (12.0-16.0); LYMPH # 4.2 10*3/uL (1.3-4.4); LYMPH % 32.8 % (27.0-41.0); MEAN CELL VOLUME 86.8 fl (81.0-99.0); MEAN CORPUSCULAR HGB 29.2 pg (27.0-31.0); MEAN CORPUSCULAR HGB CONC 33.6 g/dl (33.0-37.0); MONO # 0.9 10*3/uL (0.1-1.0); MONO % 6.9 % (3.0-9.0); NEUT # 7.1 10*3/uL (2.3-7.9); NEUT % 55.1 % (47.0-73.0); PLATELET COUNT AUTOMATED 197 10*3/uL (130-400); RED BLOOD COUNT 4.93 10*6/uL (4.10-5.10); RED CELL DISTRI WIDTH 12.3 % (0-14.5); WHITE BLOOD COUNT 12.8 10*3/uL (4.8-10.8)
[2018-12-17 00:25] LABS: BILIRUBIN NEGATIVE (NEGATIVE); BLOOD NEGATIVE (NEGATIVE); CLARITY SL CLOUDY (CLEAR); COLOR YELLOW (YELLOW); GLUCOSE NEGATIVE (NEGATIVE); KETONE NEGATIVE (NEGATIVE); LEUKO ESTERASE NEGATIVE (NEGATIVE); NITRITE NEGATIVE (NEGATIVE); PH 6.5 (5.0-9.0); UROBILINOGEN 0.2 E.U./dl (0.2-1.0)
[2018-12-17 00:28] LABS: ALBUMIN 3.6 gm/dl (3.1-4.5); ALKALINE PHOSPHATASE 104 U/L (45-117); BUN 4 mg/dl (7-24); CHLORIDE 108 mmol/L (98-107); CREATININE 0.99 mg/dL (0.55-1.02); POTASSIUM 4.1 mmol/L (3.5-5.1); SGOT/AST 30 IU/L (3-35); SGPT/ALT 31 U/L (12-78); SODIUM 139 mmol/L (136-145); TOTAL PROTEIN 6.9 gm/dL (6.4-8.2)
[2018-12-17 00:32] LABS: BACTERIA 2+; RBC 0-2 rbc/hpf (0-2); WBC 0-2 wbc/hpf (0-5)
== END 2018-12-17 02:07 | disposition home or self-care (01) ==
LOC: ED 22:28
PROVIDERS: Nurse Practitioner
DX: G43.909 Migraine, unspecified, not intractable, without status migrainosus (principal); E86.0 Dehydration; R09.81 Nasal congestion; F17.200 Nicotine dependence, unspecified, uncomplicated; Z90.49 Acquired absence of other specified parts of digestive tract; Z88.0 Allergy status to penicillin; Z88.1 Allergy status to other antibiotic agents; Z88.6 Allergy status to analgesic agent; Z88.2 Allergy status to sulfonamides; Z79.899 Other long term (current) drug therapy; Z79.2 Long term (current) use of antibiotics

== ENCOUNTER 2018-12-25 12:01 | Emergency (ER) | payer OTHER ==
[~2018-12-25] VITALS: Ht 162.5 cm; Wt 113.4 kg
[2018-12-25] MEDS ORDERED: OMNICEF300 MG PO (13:06)
[2018-12-25] MEDS ORDERED: PREDNISONE20 M1 PO (13:06)
[2018-12-25] MEDS ORDERED: Tobrex Ophth S2.5 ML OPH (13:26)
[2019-01-04] MEDS ORDERED: DIFLUCAN150 MG PO (15:52)
[2019-01-04] MEDS ORDERED: PREDNISONE50 MG PO (15:52)
[2019-01-04] MEDS ORDERED: CLARITIN10 MG PO (15:52)
[2019-01-04] MEDS ORDERED: FLONASE ALLERG9.9 ML NAS (15:52)
== END 2018-12-25 13:18 | disposition home or self-care (01) ==
LOC: ED 12:01
DX: J32.9 Chronic sinusitis, unspecified (principal); H66.91 Otitis media, unspecified, right ear; F17.200 Nicotine dependence, unspecified, uncomplicated; Z98.51 Tubal ligation status; Z90.49 Acquired absence of other specified parts of digestive tract; Z98.890 Other specified postprocedural states; Z88.0 Allergy status to penicillin; Z88.1 Allergy status to other antibiotic agents; Z88.3 Allergy status to other anti-infective agents; Z88.2 Allergy status to sulfonamides

== ENCOUNTER → 2018-12-30 | Outpatient (CLI) | payer OTHER ==
[~2018-12-30] MED LIST changes: +PREDNISONE50 MG PO; +Tobrex Ophth S2.5 ML OPH
== END | disposition home or self-care (01) ==
LOC: LAB 13:35
DX: H66.91 Otitis media, unspecified, right ear (principal)

== ENCOUNTER 2019-01-27 17:43 | Emergency (ER) | payer OTHER ==
[~2019-01-27] VITALS: Ht 162.5 cm; Wt 111.1 kg
[2019-01-27] MEDS ORDERED: ZYRTEC10 M3 PO (17:45)
[2019-01-27] MEDS ORDERED: TESSALON PERLE100 MG PO (18:46)
[2019-01-27] MEDS ORDERED: ZITHROMAX500 MG PO (18:46)
[2019-01-27] MEDS ORDERED: PREDNISONE20 M1 PO (18:46)
== END 2019-01-27 19:05 | disposition home or self-care (01) ==
LOC: ED 17:43
DX: J01.90 Acute sinusitis, unspecified (principal); F17.200 Nicotine dependence, unspecified, uncomplicated; Z88.8 Allergy status to other drugs, medicaments and biological substances; Z88.0 Allergy status to penicillin; Z88.1 Allergy status to other antibiotic agents; Z88.6 Allergy status to analgesic agent; Z88.2 Allergy status to sulfonamides; Z79.899 Other long term (current) drug therapy; Z90.49 Acquired absence of other specified parts of digestive tract

== ENCOUNTER 2019-02-28 22:29 | Emergency (ER) | payer OTHER ==
[~2019-02-28] VITALS: Ht 162.5 cm; Wt 113.4 kg
[~2019-02-28 22:29] MED LIST changes: +TESSALON PERLE100 MG PO; +ZITHROMAX500 MG PO; +ZYRTEC10 M3 PO
[2019-02-28 22:52] LABS: BILIRUBIN NEGATIVE (NEGATIVE); BLOOD NEGATIVE (NEGATIVE); CLARITY CLEAR (CLEAR); COLOR YELLOW (YELLOW); GLUCOSE NEGATIVE (NEGATIVE); KETONE NEGATIVE (NEGATIVE); LEUKO ESTERASE NEGATIVE (NEGATIVE); NITRITE NEGATIVE (NEGATIVE); SPECIFIC GRAVITY 1.015 (1.005-1.030)
[2019-02-28 23:05] LABS: EPITHELIAL CELLS 15-20; WBC 0-2 wbc/hpf (0-5)
[2019-02-28 23:09] LABS: BASO # 0.1 10*3/uL (0.0-0.1); BASO % 0.6 % (0.0-1.0); EOS # 0.4 10*3/uL (0.0-0.4); EOS % 2.8 % (1.0-4.0); HEMATOCRIT 42.8 % (37.0-47.0); HEMOGLOBIN 14.4 g/dl (12.0-16.0); LYMPH # 4.3 10*3/uL (1.3-4.4); MEAN CELL VOLUME 86.1 fl (81.0-99.0); MEAN CORPUSCULAR HGB CONC 33.6 g/dl (33.0-37.0); MEAN PLATELET VOLUME 10.3 fl (9.6-12.3); MONO % 6.8 % (3.0-9.0); NEUT # 9.3 10*3/uL (2.3-7.9); NEUT % 61.2 % (47.0-73.0); PLATELET COUNT AUTOMATED 280 10*3/uL (130-400); RED BLOOD COUNT 4.97 10*6/uL (4.10-5.10); RED CELL DISTRI WIDTH 12.5 % (0-14.5); WHITE BLOOD COUNT 15.2 10*3/uL (4.8-10.8)
[2019-02-28 23:23] LABS: ALBUMIN 3.7 gm/dl (3.1-4.5); ALKALINE PHOSPHATASE 119 U/L (45-117); BUN 13 mg/dl (7-24); CHLORIDE 105 mmol/L (98-107); CREATININE 0.98 mg/dL (0.55-1.02); POTASSIUM 3.6 mmol/L (3.5-5.1); SGOT/AST 15 IU/L (3-35); SGPT/ALT 25 U/L (12-78); SODIUM 137 mmol/L (136-145); TOTAL PROTEIN 7.4 gm/dL (6.4-8.2)
[2019-03-01] MEDS ORDERED: AMINOPHYLLIN200 MG PO (00:29)
== END 2019-03-01 00:40 | disposition home or self-care (01) ==
LOC: ED 22:29
PROVIDERS: Nurse Practitioner Family
DX: J32.0 Chronic maxillary sinusitis (principal); I10 Essential (primary) hypertension; R35.0 Frequency of micturition; G43.909 Migraine, unspecified, not intractable, without status migrainosus; J45.909 Unspecified asthma, uncomplicated; E66.01 Morbid (severe) obesity due to excess calories; F17.200 Nicotine dependence, unspecified, uncomplicated; Z98.51 Tubal ligation status; Z88.8 Allergy status to other drugs, medicaments and biological substances; Z88.0 Allergy status to penicillin; Z88.1 Allergy status to other antibiotic agents; Z88.6 Allergy status to analgesic agent; Z88.2 Allergy status to sulfonamides; Z79.899 Other long term (current) drug therapy; Z79.2 Long term (current) use of antibiotics; Z90.49 Acquired absence of other specified parts of digestive tract

== ENCOUNTER 2019-05-12 14:23 | Emergency (ER) | payer OTHER ==
[~2019-05-12] VITALS: Ht 162.5 cm; Wt 111.1 kg
[~2019-05-12 14:23] MED LIST changes: +AMINOPHYLLIN200 MG PO
[2019-05-12] MEDS ORDERED: PROAIR HFA8.5 GM INH (16:08)
[2019-05-12] MEDS ORDERED: ZOFRAN4 MG PO (16:08)
== END 2019-05-12 16:26 | disposition home or self-care (01) ==
LOC: ED 14:23
DX: B34.9 Viral infection, unspecified (principal); I10 Essential (primary) hypertension; J45.909 Unspecified asthma, uncomplicated; F17.200 Nicotine dependence, unspecified, uncomplicated; Z88.8 Allergy status to other drugs, medicaments and biological substances; Z88.0 Allergy status to penicillin; Z88.1 Allergy status to other antibiotic agents; Z88.6 Allergy status to analgesic agent; Z88.2 Allergy status to sulfonamides; Z79.2 Long term (current) use of antibiotics; Z79.899 Other long term (current) drug therapy

== ENCOUNTER 2019-05-21 16:48 | Emergency (ER) | payer OTHER ==
[~2019-05-21] VITALS: Ht 162.5 cm; Wt 113.4 kg
[~2019-05-21 16:48] MED LIST changes: +PROAIR HFA8.5 GM INH
[2019-05-21 18:33] LABS: BILIRUBIN NEGATIVE (NEGATIVE); BLOOD NEGATIVE (NEGATIVE); CLARITY CLEAR (CLEAR); COLOR YELLOW (YELLOW); GLUCOSE NEGATIVE (NEGATIVE); KETONE NEGATIVE (NEGATIVE); LEUKO ESTERASE NEGATIVE (NEGATIVE); NITRITE NEGATIVE (NEGATIVE); PH 6.5 (5.0-9.0); UROBILINOGEN 0.2 E.U./dl (0.2-1.0)
[2019-05-21 19:30] LABS: BASO % 0.5 % (0.0-1.0); EOS # 0.1 10*3/uL (0.0-0.4); EOS % 0.8 % (1.0-4.0); HEMATOCRIT 40.1 % (37.0-47.0); HEMOGLOBIN 13.2 g/dl (12.0-16.0); LYMPH # 1.4 10*3/uL (1.3-4.4); LYMPH % 22.5 % (27.0-41.0); MEAN CELL VOLUME 87.9 fl (81.0-99.0); MEAN CORPUSCULAR HGB 28.9 pg (27.0-31.0); MEAN CORPUSCULAR HGB CONC 32.9 g/dl (33.0-37.0); MEAN PLATELET VOLUME 11.1 fl (9.6-12.3); MONO # 0.5 10*3/uL (0.1-1.0); MONO % 8.6 % (3.0-9.0); NEUT % 66.9 % (47.0-73.0); PLATELET COUNT AUTOMATED 155 10*3/uL (130-400); RED BLOOD COUNT 4.56 10*6/uL (4.10-5.10); RED CELL DISTRI WIDTH 12.5 % (0-14.5)
[2019-05-21] MEDS ORDERED: TAMIFLU 75MG CA75 MG PO (19:37)
[2019-05-21 19:52] LABS: ALBUMIN 3.5 gm/dl (3.1-4.5); ALKALINE PHOSPHATASE 233 U/L (45-117); BUN 6 mg/dl (7-24); CHLORIDE 105 mmol/L (98-107); CREATININE 0.91 mg/dL (0.55-1.02); POTASSIUM 3.7 mmol/L (3.5-5.1); SGOT/AST 42 IU/L (3-35); SGPT/ALT 58 U/L (12-78); SODIUM 137 mmol/L (136-145); TOTAL PROTEIN 6.8 gm/dL (6.4-8.2)
== END 2019-05-21 20:30 | disposition home or self-care (01) ==
LOC: ED 16:48
PROVIDERS: Nurse Practitioner Family
DX: J10.1 Influenza due to other identified influenza virus with other respiratory manifestations (principal); J45.909 Unspecified asthma, uncomplicated; I10 Essential (primary) hypertension; F17.200 Nicotine dependence, unspecified, uncomplicated; Z79.899 Other long term (current) drug therapy; Z88.0 Allergy status to penicillin; Z88.2 Allergy status to sulfonamides; Z88.6 Allergy status to analgesic agent; Z88.8 Allergy status to other drugs, medicaments and biological substances

== ENCOUNTER → 2020-05-19 | Outpatient (CLI) | payer OTHER ==
[~2020-05-19] MED LIST changes: +TAMIFLU 75MG CA75 MG PO
== END | disposition home or self-care (01) ==
LOC: COVID19 13:38
PROVIDERS: ATTEND Nurse Practitioner Family
DX: R05 Cough (principal); Z20.828 Contact with and (suspected) exposure to other viral communicable diseases

== ENCOUNTER 2020-06-24 21:23 | Emergency (ER) | payer OTHER ==
[~2020-06-24] VITALS: Ht 162.5 cm; Wt 113.4 kg
[2020-06-24] MEDS ORDERED: ZYRTEC10 M2 PO ×2 (21:48)
[2020-06-24] MEDS ORDERED: CEFDINIR300 MG PO ×2 (21:48)
== END 2020-06-24 21:58 | disposition home or self-care (01) ==
LOC: ED 21:23
DX: H66.91 Otitis media, unspecified, right ear (principal); I10 Essential (primary) hypertension; J45.909 Unspecified asthma, uncomplicated; F41.9 Anxiety disorder, unspecified; Z88.0 Allergy status to penicillin; Z88.8 Allergy status to other drugs, medicaments and biological substances; Z79.899 Other long term (current) drug therapy

== ENCOUNTER 2020-08-03 22:30 | Emergency (ER) | payer OTHER ==
[~2020-08-03] VITALS: Ht 162.5 cm; Wt 115.7 kg
[~2020-08-03 22:30] MED LIST changes: +CEFDINIR300 MG PO
[2020-08-03 23:14] LABS: BASO # 0.1 10*3/uL (0.0-0.1); BASO % 0.4 % (0.0-1.0); EOS # 0.4 10*3/uL (0.0-0.4); EOS % 3.1 % (1.0-4.0); HEMATOCRIT 42.3 % (37.0-47.0); LYMPH # 3.6 10*3/uL (1.3-4.4); MEAN CELL VOLUME 86.2 fl (81.0-99.0); MEAN CORPUSCULAR HGB 28.9 pg (27.0-31.0); MEAN CORPUSCULAR HGB CONC 33.6 g/dl (33.0-37.0); MEAN PLATELET VOLUME 10.1 fl (9.6-12.3); MONO # 0.9 10*3/uL (0.1-1.0); MONO % 7.2 % (3.0-9.0); NEUT # 7.8 10*3/uL (2.3-7.9); NEUT % 60.9 % (47.0-73.0); PLATELET COUNT AUTOMATED 239 10*3/uL (130-400); RED BLOOD COUNT 4.91 10*6/uL (4.10-5.10); RED CELL DISTRI WIDTH 12.1 % (0-14.5); WHITE BLOOD COUNT 12.8 10*3/uL (4.8-10.8)
[2020-08-03 23:30] LABS: ALBUMIN 3.6 gm/dl (3.1-4.5); ALKALINE PHOSPHATASE 111 U/L (45-117); BUN 10 mg/dl (7-24); CHLORIDE 107 mmol/L (98-107); CREATININE 0.87 mg/dL (0.55-1.02); SGOT/AST 27 IU/L (3-35); SGPT/ALT 41 U/L (12-78); SODIUM 138 mmol/L (136-145); TOTAL PROTEIN 7.1 gm/dL (6.4-8.2)
[2020-08-03] MEDS ORDERED: CETIRIZINE HYDR10 MG PO (23:51)
[2020-08-04] MEDS ORDERED: MUCINEX DM 30/61 TAB PO (01:58)
[2020-08-04] MEDS ORDERED: CEFDINIR300 MG PO (01:58)
== END 2020-08-04 02:13 | disposition home or self-care (01) ==
LOC: ED 22:30
PROVIDERS: Emergency Medicine
DX: J32.9 Chronic sinusitis, unspecified (principal); J40 Bronchitis, not specified as acute or chronic; F41.9 Anxiety disorder, unspecified; G43.909 Migraine, unspecified, not intractable, without status migrainosus; I10 Essential (primary) hypertension; Z20.822 Contact with and (suspected) exposure to COVID-19; Z98.890 Other specified postprocedural states; Z90.49 Acquired absence of other specified parts of digestive tract; Z88.8 Allergy status to other drugs, medicaments and biological substances; Z98.51 Tubal ligation status; Z88.0 Allergy status to penicillin; Z79.899 Other long term (current) drug therapy

== ENCOUNTER 2020-08-29 20:23 | Emergency (ER) | payer OTHER ==
[~2020-08-29] VITALS: Ht 162.5 cm; Wt 115.7 kg
[~2020-08-29 20:23] MED LIST changes: +CETIRIZINE HYDR10 MG PO; +MUCINEX DM 30/61 TAB PO
== END 2020-08-29 23:36 | disposition home or self-care (01) ==
LOC: ED 20:23
DX: S93.602A Unspecified sprain of left foot, initial encounter (principal); Z88.0 Allergy status to penicillin; Z88.2 Allergy status to sulfonamides; Z88.8 Allergy status to other drugs, medicaments and biological substances; Z79.899 Other long term (current) drug therapy; Z98.51 Tubal ligation status; Z90.49 Acquired absence of other specified parts of digestive tract; Z98.890 Other specified postprocedural states; X58.XXXA Exposure to other specified factors, initial encounter; Y93.89 Activity, other specified; Y92.89 Other specified places as the place of occurrence of the external cause; Y99.8 Other external cause status

== ENCOUNTER 2020-10-03 07:08 | Emergency (ER) | payer OTHER ==
[~2020-10-03] VITALS: Ht 162.5 cm; Wt 113.4 kg
[2020-10-03] MEDS ORDERED: ZOFRAN4 MG PO (09:04)
[2020-10-04] MEDS ORDERED: CIPRO500 MG PO (12:14)
[2020-10-04] MEDS ORDERED: PHENERGAN25 M3 PO (12:14)
[2020-10-04] MEDS ORDERED: FLAGYL500 MG PO (12:14)
== END 2020-10-03 09:12 | disposition home or self-care (01) ==
LOC: ED 07:08
DX: R11.2 Nausea with vomiting, unspecified (principal); Z88.8 Allergy status to other drugs, medicaments and biological substances; Z88.0 Allergy status to penicillin; Z88.2 Allergy status to sulfonamides; Z79.899 Other long term (current) drug therapy; Z90.49 Acquired absence of other specified parts of digestive tract; Z98.51 Tubal ligation status; Z98.890 Other specified postprocedural states

== ENCOUNTER 2020-10-04 08:09 | Emergency (ER) | payer OTHER ==
[~2020-10-04] VITALS: Wt 113.4 kg
[2020-10-04 08:58] LABS: BASO # 0.1 10*3/uL (0.0-0.1); BASO % 0.7 % (0.0-1.0); EOS # 0.3 10*3/uL (0.0-0.4); EOS % 2.9 % (1.0-4.0); HEMATOCRIT 43.8 % (37.0-47.0); LYMPH # 2.8 10*3/uL (1.3-4.4); MEAN CELL VOLUME 85.9 fl (81.0-99.0); MEAN CORPUSCULAR HGB 28.8 pg (27.0-31.0); MEAN CORPUSCULAR HGB CONC 33.6 g/dl (33.0-37.0); MEAN PLATELET VOLUME 10.3 fl (9.6-12.3); MONO # 0.6 10*3/uL (0.1-1.0); MONO % 6.1 % (3.0-9.0); NEUT # 6.3 10*3/uL (2.3-7.9); NEUT % 61.8 % (47.0-73.0); PLATELET COUNT AUTOMATED 190 10*3/uL (130-400); RED CELL DISTRI WIDTH 12.1 % (0-14.5); WHITE BLOOD COUNT 10.1 10*3/uL (4.8-10.8)
[2020-10-04 09:16] LABS: ALBUMIN 3.5 gm/dl (3.1-4.5); ALKALINE PHOSPHATASE 101 U/L (45-117); BUN 8 mg/dl (7-24); CHLORIDE 107 mmol/L (98-107); CREATININE 0.95 mg/dL (0.55-1.02); LIPASE 97 U/L (73-393); POTASSIUM 4.1 mmol/L (3.5-5.1); SGOT/AST 28 IU/L (3-35); SGPT/ALT 41 U/L (12-78); SODIUM 137 mmol/L (136-145)
[2020-10-04 09:17] LABS: BETA-HCG, QUANT < 1.0 mIU/mL (1-3)
[2020-10-04 09:33] LABS: BILIRUBIN Negative (Negative); BLOOD Negative (Negative); CLARITY Clear (Clear); COLOR Yellow (Yellow); GLUCOSE Negative (Negative); KETONE Negative (Negative); LEUKO ESTERASE Negative (Negative); NITRITE Negative (Negative); UROBILINOGEN 0.2 E.U./dl (0.0-1.0)
[2020-10-04 09:40] LABS: RBC 0-2 rbc/hpf (0-2); WBC 0-2 wbc/hpf (0-5)
[2020-10-04] MEDS ORDERED: PHENERGAN25 M3 PO (12:14)
[2020-10-04] MEDS ORDERED: FLAGYL500 MG PO (12:14)
[2020-10-04] MEDS ORDERED: CIPRO500 MG PO (12:14)
== END 2020-10-04 12:46 | disposition home or self-care (01) ==
LOC: ED 08:09
PROVIDERS: Emergency Medicine
DX: K52.9 Noninfective gastroenteritis and colitis, unspecified (principal); F17.200 Nicotine dependence, unspecified, uncomplicated; Z88.8 Allergy status to other drugs, medicaments and biological substances; Z88.0 Allergy status to penicillin; Z88.2 Allergy status to sulfonamides; Z79.899 Other long term (current) drug therapy; Z90.49 Acquired absence of other specified parts of digestive tract; Z98.51 Tubal ligation status; Z98.890 Other specified postprocedural states

== ENCOUNTER → 2020-10-27 | Outpatient (CLI) | payer OTHER ==
[~2020-10-27] MED LIST changes: +PHENERGAN25 M3 PO
== END | disposition home or self-care (01) ==
LOC: US 15:49
PROVIDERS: ATTEND Nurse Practitioner Women's Health
DX: N83.202 Unspecified ovarian cyst, left side (principal); N83.201 Unspecified ovarian cyst, right side

== ENCOUNTER 2021-02-14 15:22 | Emergency (ER) | payer OTHER ==
[~2021-02-14] VITALS: Wt 111.1 kg
[2021-02-14 16:52] LABS: BASO % 0.4 % (0.0-1.0); EOS # 0.2 10*3/uL (0.0-0.4); EOS % 2.3 % (1.0-4.0); HEMATOCRIT 43.1 % (37.0-47.0); LYMPH # 2.7 10*3/uL (1.3-4.4); LYMPH % 25.8 % (27.0-41.0); MEAN CORPUSCULAR HGB 28.8 pg (27.0-31.0); MEAN CORPUSCULAR HGB CONC 33.9 g/dl (33.0-37.0); MEAN PLATELET VOLUME 10.5 fl (9.6-12.3); MONO # 0.7 10*3/uL (0.1-1.0); MONO % 6.8 % (3.0-9.0); NEUT # 6.6 10*3/uL (2.3-7.9); NEUT % 64.2 % (47.0-73.0); PLATELET COUNT AUTOMATED 214 10*3/uL (130-400); RED BLOOD COUNT 5.07 10*6/uL (4.10-5.10); RED CELL DISTRI WIDTH 12.5 % (0-14.5); WHITE BLOOD COUNT 10.3 10*3/uL (4.8-10.8)
[2021-02-14 16:55] LABS: BILIRUBIN Negative (Negative); BLOOD Negative (Negative); CLARITY Clear (Clear); COLOR Yellow (Yellow); GLUCOSE Negative (Negative); KETONE Negative (Negative); LEUKO ESTERASE Negative (Negative); NITRITE Negative (Negative); SPECIFIC GRAVITY <= 1.005 (1.001-1.030); UROBILINOGEN 0.2 E.U./dl (0.0-1.0)
[2021-02-14 17:05] LABS: ALBUMIN 3.5 gm/dl (3.1-4.5); ALKALINE PHOSPHATASE 98 U/L (45-117); BUN 8 mg/dl (7-24); CHLORIDE 107 mmol/L (98-107); CREATININE 0.88 mg/dL (0.55-1.02); POTASSIUM 3.9 mmol/L (3.5-5.1); SGOT/AST 27 IU/L (3-35); SGPT/ALT 40 U/L (12-78); SODIUM 138 mmol/L (136-145); TOTAL PROTEIN 7.1 gm/dL (6.4-8.2)
[2021-02-14 17:11] LABS: BACTERIA TRACE; RBC 0-2 rbc/hpf (0-2); WBC 0-2 wbc/hpf (0-5)
== END 2021-02-14 19:13 | disposition home or self-care (01) ==
LOC: ED 15:22
PROVIDERS: Physician Assistant
DX: B34.9 Viral infection, unspecified (principal); Z20.822 Contact with and (suspected) exposure to COVID-19; F17.200 Nicotine dependence, unspecified, uncomplicated; Z88.0 Allergy status to penicillin; Z88.1 Allergy status to other antibiotic agents; Z79.899 Other long term (current) drug therapy

== ENCOUNTER → 2021-03-13 | Outpatient (CLI) | payer OTHER | END | disposition home or self-care (01) | LOC: CARD 09:57 | PROVIDERS: ATTEND Internal Medicine Cardiovascular Disease | DX: R06.00 Dyspnea, unspecified (principal) ==

== ENCOUNTER → 2021-03-23 | Outpatient (CLI) | payer OTHER ==
[~2021-03-23] MED LIST changes: +VAZALORE81 MG PO; +VITAMIN D31250 MC1 PO
== END | disposition home or self-care (01) ==
LOC: RAD 12:44
PROVIDERS: ATTEND Internal Medicine Cardiovascular Disease
DX: R05.9 Cough, unspecified (principal); R06.02 Shortness of breath; R79.89 Other specified abnormal findings of blood chemistry

== ENCOUNTER → 2021-06-15 | Outpatient (CLI) | payer OTHER | END | disposition home or self-care (01) | LOC: RAD 11:41 | PROVIDERS: ATTEND Nurse Practitioner Family | DX: R05.9 Cough, unspecified (principal); R06.2 Wheezing ==

== ENCOUNTER 2021-11-20 23:28 | Emergency (ER) | payer OTHER ==
[~2021-11-20] VITALS: Ht 162.5 cm; Wt 117.9 kg
[2021-11-20] MEDS ORDERED: ONDANSETRON HYDR4 M1 PO (23:54)
[2021-11-21 01:27] LABS: BASO # 0.1 10*3/uL (0.0-0.1); BASO % 0.4 % (0.0-1.0); EOS # 0.2 10*3/uL (0.0-0.4); EOS % 1.4 % (1.0-4.0); HEMATOCRIT 44.8 % (37.0-47.0); LYMPH # 2.2 10*3/uL (1.3-4.4); LYMPH % 15.2 % (27.0-41.0); MEAN CELL VOLUME 84.4 fl (81.0-99.0); MEAN CORPUSCULAR HGB 28.6 pg (27.0-31.0); MEAN CORPUSCULAR HGB CONC 33.9 g/dl (33.0-37.0); MEAN PLATELET VOLUME 10.2 fl (9.6-12.3); MONO # 0.7 10*3/uL (0.1-1.0); MONO % 5.1 % (3.0-9.0); NEUT # 11.1 10*3/uL (2.3-7.9); NEUT % 77.4 % (47.0-73.0); PLATELET COUNT AUTOMATED 229 10*3/uL (130-400); RED BLOOD COUNT 5.31 10*6/uL (4.10-5.10); RED CELL DISTRI WIDTH 12.6 % (0-14.5); WHITE BLOOD COUNT 14.3 10*3/uL (4.8-10.8)
[2021-11-21 01:43] LABS: ALKALINE PHOSPHATASE 125 U/L (45-117); BUN 9 mg/dl (7-24); CHLORIDE 109 mmol/L (98-107); CREATININE 0.98 mg/dL (0.55-1.02); POTASSIUM 3.9 mmol/L (3.5-5.1); SGOT/AST 32 IU/L (3-35); SGPT/ALT 42 U/L (12-78); SODIUM 136 mmol/L (136-145); TOTAL PROTEIN 6.8 gm/dL (6.4-8.2)
[2021-11-21 02:22] LABS: URINE AMPHETAMINES < 1000 (1000ng/ml); URINE BARBITURATES < 200 (200ng/ml); URINE BENZODIAZEPINES < 200 (200ng/ml); URINE CANNABINOIDS (THC) < 50 (50ng/ml); URINE COCAINE < 300 (300ng/ml); URINE METHADONE < 300 (300ng/ml); URINE OPIATES < 300 (300ng/ml)
[2021-11-21 02:23] LABS: URINE PHENCYCLIDINE < 25 (25ng/ml)
[2021-11-21 02:26] LABS: BILIRUBIN 1+ (Negative); BLOOD Negative (Negative); CLARITY Clear (Clear); COLOR Dark Yellow (Yellow); GLUCOSE Negative (Negative); KETONE Trace (Negative); LEUKO ESTERASE Trace (Negative); NITRITE Negative (Negative); PH 5.5 (4.5-8.0); SPECIFIC GRAVITY >= 1.030 (1.001-1.030)
[2021-11-21 03:03] LABS: EPITHELIAL CELLS 31-40
[2021-11-21 03:04] LABS: BACTERIA TRACE
[2021-11-21] MEDS ORDERED: PHENERGAN25 M3 PO (11:40)
[2021-11-21] MEDS ORDERED: PEPCID20 MG PO (11:40)
== END 2021-11-21 11:56 | disposition home or self-care (01) ==
LOC: ED 23:28
PROVIDERS: Student in an Organized Health Care Education/Training Program
DX: K52.9 Noninfective gastroenteritis and colitis, unspecified (principal); I10 Essential (primary) hypertension; G43.909 Migraine, unspecified, not intractable, without status migrainosus; E66.9 Obesity, unspecified; F17.200 Nicotine dependence, unspecified, uncomplicated; Z90.49 Acquired absence of other specified parts of digestive tract; Z88.0 Allergy status to penicillin; Z88.1 Allergy status to other antibiotic agents; Z88.8 Allergy status to other drugs, medicaments and biological substances; Z79.899 Other long term (current) drug therapy; Z79.82 Long term (current) use of aspirin; Z98.51 Tubal ligation status; Z98.890 Other specified postprocedural states

== ENCOUNTER → 2021-12-26 | Outpatient (CLI) | payer OTHER ==
[~2021-12-26] MED LIST changes: +ONDANSETRON HYDR4 M1 PO; +PEPCID20 MG PO
[2021-12-26 15:49] LABS: BASO # 0.1 10*3/uL (0.0-0.1); BASO % 0.6 % (0.0-1.0); EOS # 0.3 10*3/uL (0.0-0.4); EOS % 2.3 % (1.0-4.0); HEMATOCRIT 43.6 % (37.0-47.0); LYMPH # 2.8 10*3/uL (1.3-4.4); LYMPH % 19.8 % (27.0-41.0); MEAN CELL VOLUME 85.2 fl (81.0-99.0); MEAN CORPUSCULAR HGB 28.9 pg (27.0-31.0); MEAN CORPUSCULAR HGB CONC 33.9 g/dl (33.0-37.0); MEAN PLATELET VOLUME 10.5 fl (9.6-12.3); MONO # 0.7 10*3/uL (0.1-1.0); NEUT # 10.1 10*3/uL (2.3-7.9); NEUT % 71.7 % (47.0-73.0); PLATELET COUNT AUTOMATED 243 10*3/uL (130-400); RED BLOOD COUNT 5.12 10*6/uL (4.10-5.10); RED CELL DISTRI WIDTH 12.5 % (0-14.5); WHITE BLOOD COUNT 14.1 10*3/uL (4.8-10.8)
[2021-12-26 16:07] LABS: ALKALINE PHOSPHATASE 93 U/L (45-117); BUN 7 mg/dl (7-24); CHLORIDE 104 mmol/L (98-107); CHOLESTEROL 119 mg/dL (<200); CREATININE 0.89 mg/dL (0.55-1.02); LDL CHOLESTEROL 36 mg/dL (9-159); SGOT/AST 26 IU/L (3-35); SGPT/ALT 32 U/L (12-78); SODIUM 137 mmol/L (136-145); TOTAL PROTEIN 7.3 gm/dL (6.4-8.2); TRIGLYCERIDES 228 mg/dl (<150)
== END | disposition home or self-care (01) ==
LOC: LAB 14:54
PROVIDERS: ATTEND Nurse Practitioner Family
DX: K51.90 Ulcerative colitis, unspecified, without complications (principal); K21.9 Gastro-esophageal reflux disease without esophagitis; E55.9 Vitamin D deficiency, unspecified; J30.9 Allergic rhinitis, unspecified

== ENCOUNTER → 2022-03-07 | Outpatient (CLI) | payer OTHER | LOC: LAB 08:17 | PROVIDERS: ATTEND Nurse Practitioner Women's Health | DX: M10.9 Gout, unspecified (principal) ==

== ENCOUNTER 2022-03-18 12:55 | Emergency (ER) | payer OTHER ==
[~2022-03-18] VITALS: Ht 162.5 cm; Wt 98.0 kg
[2022-03-18] MEDS ORDERED: TYLENOL325 M1 PO (16:12)
[2022-03-18] MEDS ORDERED: MUCINEX DM 30/61 TAB PO (16:12)
== END 2022-03-18 16:42 | disposition home or self-care (01) ==
LOC: ED 12:55
DX: J06.9 Acute upper respiratory infection, unspecified (principal); Z20.822 Contact with and (suspected) exposure to COVID-19; F41.9 Anxiety disorder, unspecified; I10 Essential (primary) hypertension; G43.909 Migraine, unspecified, not intractable, without status migrainosus; E66.01 Morbid (severe) obesity due to excess calories; F17.200 Nicotine dependence, unspecified, uncomplicated; Z88.8 Allergy status to other drugs, medicaments and biological substances; Z88.0 Allergy status to penicillin; Z88.1 Allergy status to other antibiotic agents; Z88.6 Allergy status to analgesic agent; Z88.2 Allergy status to sulfonamides; Z79.899 Other long term (current) drug therapy; Z79.82 Long term (current) use of aspirin; Z98.51 Tubal ligation status; Z98.890 Other specified postprocedural states; Z90.49 Acquired absence of other specified parts of digestive tract

== ENCOUNTER → 2022-04-09 | Outpatient (CLI) | payer OTHER ==
[~2022-04-09] MED LIST changes: +TYLENOL325 M1 PO
== END | disposition home or self-care (01) ==
LOC: RAD 10:10
PROVIDERS: ATTEND Nurse Practitioner Family
DX: M79.672 Pain in left foot (principal)

== ENCOUNTER 2022-04-27 22:28 | Emergency (ER) | payer OTHER ==
[2022-04-28] MEDS ORDERED: PREDNISONE20 M1 PO (00:24)
[2022-04-28] MEDS ORDERED: ZITHROMAX250 MG PO (00:25)
== END 2022-04-28 01:04 | disposition home or self-care (01) ==
LOC: ED 22:28
DX: J06.9 Acute upper respiratory infection, unspecified (principal); Z20.822 Contact with and (suspected) exposure to COVID-19; Z88.8 Allergy status to other drugs, medicaments and biological substances; Z88.1 Allergy status to other antibiotic agents; Z88.0 Allergy status to penicillin; Z90.49 Acquired absence of other specified parts of digestive tract; Z98.51 Tubal ligation status; Z98.890 Other specified postprocedural states; Z87.891 Personal history of nicotine dependence

== ENCOUNTER 2022-08-06 10:46 | Emergency (ER) | payer OTHER ==
[~2022-08-06] VITALS: Ht 162.5 cm; Wt 122.5 kg
[2022-08-06] MEDS ORDERED: Ondansetron4 MG PO (11:24)
== END 2022-08-06 11:21 | disposition home or self-care (01) ==
LOC: ED 10:46
DX: U07.1 COVID-19 (principal); R11.2 Nausea with vomiting, unspecified; I10 Essential (primary) hypertension; J45.909 Unspecified asthma, uncomplicated; F41.9 Anxiety disorder, unspecified; Z88.0 Allergy status to penicillin; Z88.1 Allergy status to other antibiotic agents; Z88.2 Allergy status to sulfonamides; Z88.8 Allergy status to other drugs, medicaments and biological substances; Z98.51 Tubal ligation status; Z90.49 Acquired absence of other specified parts of digestive tract; Z98.890 Other specified postprocedural states; F17.200 Nicotine dependence, unspecified, uncomplicated

== ENCOUNTER 2022-08-10 19:09 | Emergency (ER) | payer OTHER ==
[~2022-08-10] VITALS: Ht 162.5 cm; Wt 122.5 kg
[~2022-08-10 19:09] MED LIST changes: +Ondansetron4 MG PO
[2022-08-10] MEDS ORDERED: ALLOPURINOL200 MG PO (19:50)
[2022-08-10 20:20] LABS: BASO % 0.4 % (0.0-1.0); EOS # 0.3 10*3/uL (0.0-0.4); EOS % 2.9 % (1.0-4.0); HEMATOCRIT 44.8 % (37.0-47.0); LYMPH # 3.2 10*3/uL (1.3-4.4); LYMPH % 29.3 % (27.0-41.0); MEAN CORPUSCULAR HGB 28.7 pg (27.0-31.0); MEAN CORPUSCULAR HGB CONC 33.7 g/dl (33.0-37.0); MEAN PLATELET VOLUME 10.4 fl (9.6-12.3); MONO # 0.7 10*3/uL (0.1-1.0); NEUT # 6.6 10*3/uL (2.3-7.9); NEUT % 60.9 % (47.0-73.0); PLATELET COUNT AUTOMATED 222 10*3/uL (130-400); RED BLOOD COUNT 5.27 10*6/uL (4.10-5.10); RED CELL DISTRI WIDTH 12.1 % (0-14.5); WHITE BLOOD COUNT 10.8 10*3/uL (4.8-10.8)
[2022-08-10 20:40] LABS: ALKALINE PHOSPHATASE 99 U/L (46-116); BUN 6 mg/dl (9-23); CHLORIDE 105 mmol/L (98-107); LIPASE 27 U/L (12-53); POTASSIUM 3.5 mmol/L (3.4-5.1); SGPT/ALT 62 U/L (10-49); TOTAL PROTEIN 6.9 gm/dL (6.0-8.0)
[2022-08-10 21:38] LABS: BILIRUBIN Negative (Negative); BLOOD Negative (Negative); CLARITY Clear (Clear); COLOR Yellow (Yellow); GLUCOSE Negative (Negative); KETONE Negative (Negative); LEUKO ESTERASE Negative (Negative); NITRITE Negative (Negative); PH 6.5 (4.5-8.0); SPECIFIC GRAVITY 1.015 (1.001-1.030)
[2022-08-10 21:50] LABS: BACTERIA TRACE; RBC 0-2 rbc/hpf (0-2)
[2022-08-10] MEDS ORDERED: PHENERGAN25 M3 PO (22:02)
== END 2022-08-10 22:08 | disposition home or self-care (01) ==
LOC: ED 19:09
PROVIDERS: Nurse Practitioner Family
DX: U07.1 COVID-19 (principal); A08.4 Viral intestinal infection, unspecified; I10 Essential (primary) hypertension; J45.909 Unspecified asthma, uncomplicated; F41.9 Anxiety disorder, unspecified; Z88.0 Allergy status to penicillin; Z88.1 Allergy status to other antibiotic agents; Z88.2 Allergy status to sulfonamides; Z88.8 Allergy status to other drugs, medicaments and biological substances; Z98.51 Tubal ligation status; Z90.49 Acquired absence of other specified parts of digestive tract; Z98.890 Other specified postprocedural states; F17.200 Nicotine dependence, unspecified, uncomplicated

== ENCOUNTER → 2022-12-18 | Outpatient (CLI) | payer OTHER ==
[~2022-12-18] MED LIST changes: +ALLOPURINOL200 MG PO
== END | disposition home or self-care (01) ==
LOC: US 15:50
PROVIDERS: ATTEND Podiatrist
DX: M79.604 Pain in right leg (principal); R60.0 Localized edema

== ENCOUNTER 2023-03-23 22:24 | Emergency (ER) | payer OTHER ==
[~2023-03-23] VITALS: Ht 162.5 cm; Wt 122.5 kg
[2023-03-23 23:17] LABS: URINE AMPHETAMINES Negative (1000ng/ml); URINE BARBITURATES Negative (200ng/ml); URINE BENZODIAZEPINES Negative (200ng/ml); URINE CANNABINOIDS (THC) Negative (50ng/ml); URINE COCAINE Negative (300ng/ml); URINE METHADONE Negative (300ng/ml); URINE OPIATES Negative (300ng/ml); URINE PHENCYCLIDINE Negative (25ng/ml)
== END 2023-03-24 01:09 | disposition home or self-care (01) ==
LOC: ED 22:24
PROVIDERS: Internal Medicine
DX: M25.511 Pain in right shoulder (principal); M54.6 Pain in thoracic spine; M54.2 Cervicalgia; I10 Essential (primary) hypertension; F41.9 Anxiety disorder, unspecified; R51.9 Headache, unspecified; F17.210 Nicotine dependence, cigarettes, uncomplicated; Z88.0 Allergy status to penicillin; Z88.8 Allergy status to other drugs, medicaments and biological substances; Z88.1 Allergy status to other antibiotic agents; Z88.2 Allergy status to sulfonamides; Z88.6 Allergy status to analgesic agent; Z79.899 Other long term (current) drug therapy; Z98.51 Tubal ligation status; Z90.49 Acquired absence of other specified parts of digestive tract; Z98.890 Other specified postprocedural states; V49.49XA Driver injured in collision with other motor vehicles in traffic accident, initial encounter; Y93.I9 Activity, other involving external motion; Y92.488 Other paved roadways as the place of occurrence of the external cause; Y99.8 Other external cause status

== ENCOUNTER 2023-06-02 09:56 | Emergency (ER) | payer OTHER ==
[~2023-06-02] VITALS: Ht 162.5 cm; Wt 113.4 kg
[2023-06-02 10:41] LABS: BASO # 0.1 10*3/uL (0.0-0.1); BASO % 0.6 % (0.0-1.0); EOS # 0.4 10*3/uL (0.0-0.4); EOS % 3.5 % (1.0-4.0); LYMPH # 2.5 10*3/uL (1.3-4.4); LYMPH % 25.4 % (27.0-41.0); MEAN CELL VOLUME 87.2 fl (81.0-99.0); MEAN CORPUSCULAR HGB 28.9 pg (27.0-31.0); MEAN CORPUSCULAR HGB CONC 33.1 g/dl (33.0-37.0); MEAN PLATELET VOLUME 10.5 fl (9.6-12.3); MONO # 0.7 10*3/uL (0.1-1.0); MONO % 6.9 % (3.0-9.0); NEUT # 6.2 10*3/uL (2.3-7.9); NEUT % 63.3 % (47.0-73.0); PLATELET COUNT AUTOMATED 207 10*3/uL (130-400); RED BLOOD COUNT 5.16 10*6/uL (4.10-5.10); RED CELL DISTRI WIDTH 12.2 % (0-14.5); WHITE BLOOD COUNT 9.9 10*3/uL (4.8-10.8)
[2023-06-02 10:45] LABS: BILIRUBIN Negative (Negative); BLOOD Negative (Negative); CLARITY Cloudy (Clear); COLOR Yellow (Yellow); GLUCOSE Negative (Negative); KETONE Negative (Negative); LEUKO ESTERASE Negative (Negative); NITRITE Negative (Negative); PH 6.5 (4.5-8.0); SPECIFIC GRAVITY 1.025 (1.001-1.030)
[2023-06-02 10:53] LABS: EPITHELIAL CELLS 16-20; WBC 0-2 wbc/hpf (0-5)
[2023-06-02 10:54] LABS: BACTERIA 1+
[2023-06-02 11:08] LABS: ALKALINE PHOSPHATASE 100 U/L (46-116); BUN 7 mg/dl (9-23); CHLORIDE 110 mmol/L (98-107); POTASSIUM 4.2 mmol/L (3.4-5.1); SGPT/ALT 46 U/L (5-49); TOTAL PROTEIN 6.6 gm/dL (6.0-8.0)
[2023-06-02] MEDS ORDERED: AVPAK AZITHROM250 M1 PO (11:17)
== END 2023-06-02 11:10 | disposition home or self-care (01) ==
LOC: ED 09:56
PROVIDERS: Emergency Medicine
DX: J45.909 Unspecified asthma, uncomplicated (principal); J04.0 Acute laryngitis; R19.7 Diarrhea, unspecified; I10 Essential (primary) hypertension; F41.9 Anxiety disorder, unspecified; Z20.822 Contact with and (suspected) exposure to COVID-19; Z88.8 Allergy status to other drugs, medicaments and biological substances; Z88.0 Allergy status to penicillin; Z88.1 Allergy status to other antibiotic agents; Z88.2 Allergy status to sulfonamides; Z98.51 Tubal ligation status; Z90.49 Acquired absence of other specified parts of digestive tract; Z98.890 Other specified postprocedural states; F17.200 Nicotine dependence, unspecified, uncomplicated

== ENCOUNTER 2023-06-09 15:17 | Emergency (ER) | payer OTHER ==
[~2023-06-09] VITALS: Ht 162.5 cm; Wt 115.7 kg
[2023-06-09] MEDS ORDERED: CLINDAMYCIN HC300 MG PO (18:46)
[2023-06-09] MEDS ORDERED: CIPRO500 MG PO (18:46)
== END 2023-06-09 18:53 | disposition home or self-care (01) ==
LOC: ED 15:17
DX: S61.251A Open bite of left index finger without damage to nail, initial encounter (principal); S61.253A Open bite of left middle finger without damage to nail, initial encounter; S40.011A Contusion of right shoulder, initial encounter; I10 Essential (primary) hypertension; J45.909 Unspecified asthma, uncomplicated; F41.9 Anxiety disorder, unspecified; F17.200 Nicotine dependence, unspecified, uncomplicated; Z88.0 Allergy status to penicillin; Z88.1 Allergy status to other antibiotic agents; Z88.2 Allergy status to sulfonamides; Z88.8 Allergy status to other drugs, medicaments and biological substances; Z98.51 Tubal ligation status; Z90.49 Acquired absence of other specified parts of digestive tract; Z98.890 Other specified postprocedural states; W55.01XA Bitten by cat, initial encounter; Y93.89 Activity, other specified; Y92.89 Other specified places as the place of occurrence of the external cause; Y99.8 Other external cause status

== ENCOUNTER 2023-08-19 21:47 | Emergency (ER) | payer OTHER ==
[~2023-08-19] VITALS: Ht 162.5 cm; Wt 113.4 kg
[2023-08-19] MEDS ORDERED: diphenhydrAMINE hydrochloride 50 MG/ML VIAL IV ONE ×2 (22:00)
[2023-08-19] MEDS ORDERED: SODIUM CHLORIDE 0.9% 1,000 ML IV ONE ×2 (22:00)
[2023-08-19] MEDS ORDERED: Dexamethasone Sodium Phospha 20 MG/5 ML VIAL IV ONE ×2 (22:00)
[2023-08-19] MEDS ORDERED: Ketorolac Tromethamine 30 MG/ML VIAL IV ONE ×2 (22:00→22:05)
[2023-08-19] MEDS ORDERED: Metoclopramide Hydrochloride 10 MG/2 ML AMP IV ONE ×2 (22:00)
[2023-08-19 22:15] LABS: BASO # 0.1 10*3/uL (0.0-0.1); BASO % 0.4 % (0.0-1.0); EOS # 0.5 10*3/uL (0.0-0.4); EOS % 3.6 % (1.0-4.0); HEMATOCRIT 41.2 % (37.0-47.0); LYMPH # 3.3 10*3/uL (1.3-4.4); LYMPH % 25.4 % (27.0-41.0); MEAN CELL VOLUME 86.9 fl (81.0-99.0); MEAN CORPUSCULAR HGB 28.9 pg (27.0-31.0); MEAN CORPUSCULAR HGB CONC 33.3 g/dl (33.0-37.0); MEAN PLATELET VOLUME 10.3 fl (9.6-12.3); MONO # 0.8 10*3/uL (0.1-1.0); NEUT # 8.3 10*3/uL (2.3-7.9); NEUT % 64.2 % (47.0-73.0); PLATELET COUNT AUTOMATED 196 10*3/uL (130-400); RED BLOOD COUNT 4.74 10*6/uL (4.10-5.10); RED CELL DISTRI WIDTH 12.5 % (0-14.5); WHITE BLOOD COUNT 12.9 10*3/uL (4.8-10.8)
[2023-08-19 22:31] LABS: BUN 5 mg/dl (9-23); CHLORIDE 108 mmol/L (98-107); POTASSIUM 3.5 mmol/L (3.4-5.1)
== END 2023-08-19 23:31 | disposition home or self-care (01) ==
LOC: ED 21:47
PROVIDERS: Physician Assistant Medical
DX: G43.909 Migraine, unspecified, not intractable, without status migrainosus (principal); Z20.822 Contact with and (suspected) exposure to COVID-19; I10 Essential (primary) hypertension; J45.909 Unspecified asthma, uncomplicated; F41.9 Anxiety disorder, unspecified; R11.0 Nausea; Z88.8 Allergy status to other drugs, medicaments and biological substances; Z88.0 Allergy status to penicillin; Z88.1 Allergy status to other antibiotic agents; Z88.2 Allergy status to sulfonamides; Z98.51 Tubal ligation status; Z90.49 Acquired absence of other specified parts of digestive tract; Z98.890 Other specified postprocedural states; F17.200 Nicotine dependence, unspecified, uncomplicated

== ENCOUNTER 2023-09-27 20:00 | Emergency (ER) | payer OTHER ==
[~2023-09-27] VITALS: Ht 162.5 cm; Wt 117.9 kg
[2023-09-27] MEDS ORDERED: BENTYL PO (20:12)
[2023-09-27] MEDS ORDERED: CLINDAMYCIN HC300 MG PO (20:35)
[2023-09-27] MEDS ORDERED: CLINDAMYCIN HCL 300 MG CAPSULE PO ONE (20:40)
== END 2023-09-27 20:41 | disposition home or self-care (01) ==
LOC: ED 20:00
DX: K04.7 Periapical abscess without sinus (principal); F41.9 Anxiety disorder, unspecified; J45.909 Unspecified asthma, uncomplicated; I10 Essential (primary) hypertension; G43.909 Migraine, unspecified, not intractable, without status migrainosus; F17.200 Nicotine dependence, unspecified, uncomplicated; Z88.0 Allergy status to penicillin; Z88.1 Allergy status to other antibiotic agents; Z88.8 Allergy status to other drugs, medicaments and biological substances; Z88.2 Allergy status to sulfonamides; Z98.51 Tubal ligation status; Z90.49 Acquired absence of other specified parts of digestive tract; Z98.890 Other specified postprocedural states

== ENCOUNTER → 2023-10-17 | Outpatient (CLI) | payer OTHER ==
[~2023-10-17] MED LIST changes: +BENTYL PO
== END | disposition home or self-care (01) ==
LOC: LAB 09:14 → US 10:00
PROVIDERS: ATTEND Nurse Practitioner Women's Health
DX: N83.291 Other ovarian cyst, right side (principal); R53.83 Other fatigue; N93.9 Abnormal uterine and vaginal bleeding, unspecified

== ENCOUNTER 2024-02-25 14:49 | Emergency (ER) | payer OTHER ==
[~2024-02-25] VITALS: Ht 162.5 cm; Wt 111.8 kg
[2024-02-25] MEDS ORDERED: ALLOPURINOL100 MG PO (14:59)
[2024-02-25] MEDS ORDERED: SODIUM CHLORIDE 0.9% 1,000 ML IV ONE (15:10)
[2024-02-25] MEDS ORDERED: Promethazine Hydrochloride 25 MG/ML VIAL IM ONE (15:10)
[2024-02-25 15:25] LABS: BASO # 0.1 10*3/uL (0.0-0.1); BASO % 0.5 % (0.0-1.0); EOS # 0.3 10*3/uL (0.0-0.4); EOS % 3.3 % (1.0-4.0); HEMATOCRIT 41.9 % (37.0-47.0); LYMPH # 2.3 10*3/uL (1.3-4.4); LYMPH % 23.1 % (27.0-41.0); MEAN CELL VOLUME 85.5 fl (81.0-99.0); MEAN CORPUSCULAR HGB 28.6 pg (27.0-31.0); MEAN CORPUSCULAR HGB CONC 33.4 g/dl (33.0-37.0); MEAN PLATELET VOLUME 10.3 fl (9.6-12.3); MONO # 0.7 10*3/uL (0.1-1.0); MONO % 6.8 % (3.0-9.0); NEUT # 6.6 10*3/uL (2.3-7.9); NEUT % 66.1 % (47.0-73.0); PLATELET COUNT AUTOMATED 195 10*3/uL (130-400); RED CELL DISTRI WIDTH 12.3 % (0-14.5)
[2024-02-25 15:36] LABS: ACT PARTIAL THROMBO TIME 28.9 SECONDS (20.0-32.1)
[2024-02-25 15:44] LABS: BILIRUBIN Negative (Negative); BLOOD Negative (Negative); CLARITY Clear (Clear); COLOR Yellow (Yellow); GLUCOSE Negative (Negative); KETONE Negative (Negative); LEUKO ESTERASE Negative (Negative); NITRITE Negative (Negative)
[2024-02-25 15:45] LABS: ALKALINE PHOSPHATASE 108 U/L (46-116); BUN 9 mg/dl (9-23); CHLORIDE 108 mmol/L (98-107); LIPASE 30 U/L (12-53); POTASSIUM 4.1 mmol/L (3.4-5.1); SGPT/ALT 34 U/L (5-49); TOTAL PROTEIN 6.5 gm/dL (6.0-8.0)
[2024-02-25 15:59] LABS: EPITHELIAL CELLS 0-2
[2024-02-25] MEDS ORDERED: Acetaminophen/Oxycodone 5 MG/325 MG TABLET PO ONE (16:40)
[2024-02-25] MEDS ORDERED: Phenergan25 MG PO (16:51)
== END 2024-02-25 16:54 | disposition home or self-care (01) ==
LOC: ED 14:49
PROVIDERS: Nurse Practitioner Family
DX: R10.13 Epigastric pain (principal); R10.11 Right upper quadrant pain; R11.2 Nausea with vomiting, unspecified; I10 Essential (primary) hypertension; J45.909 Unspecified asthma, uncomplicated; F41.9 Anxiety disorder, unspecified; F31.9 Bipolar disorder, unspecified; G43.909 Migraine, unspecified, not intractable, without status migrainosus; F17.200 Nicotine dependence, unspecified, uncomplicated; Z88.8 Allergy status to other drugs, medicaments and biological substances; Z88.0 Allergy status to penicillin; Z88.1 Allergy status to other antibiotic agents; Z88.2 Allergy status to sulfonamides; Z98.51 Tubal ligation status; Z90.49 Acquired absence of other specified parts of digestive tract; Z98.890 Other specified postprocedural states

== ENCOUNTER 2024-03-24 19:28 | Emergency (ER) | payer OTHER ==
[~2024-03-24] VITALS: Ht 162.5 cm; Wt 108.9 kg
[~2024-03-24 19:28] MED LIST changes: +ALLOPURINOL100 MG PO; +Phenergan25 MG PO
[2024-03-24] MEDS ORDERED: Ondansetron Hydrochloride 4 MG TAB SL ONE (20:10)
[2024-03-24] MEDS ORDERED: Acetaminophen/Hydrocodone 5 MG/325 MG TABLET PO ONE (20:10)
[2024-03-24] MEDS ORDERED: Sulfamethoxazole/Trimethopri 1 TAB TAB PO ONE (20:10)
[2024-03-24] MEDS ORDERED: CLINDAMYCIN HCL 300 MG CAPSULE PO ONE (20:10)
[2024-03-24] MEDS ORDERED: CLINDAMYCIN HC300 MG PO (20:13)
[2024-03-24] MEDS ORDERED: SEPTDS PO (20:13)
== END 2024-03-24 20:28 | disposition home or self-care (01) ==
LOC: ED 19:28
DX: L02.31 Cutaneous abscess of buttock (principal); F17.200 Nicotine dependence, unspecified, uncomplicated; Z88.8 Allergy status to other drugs, medicaments and biological substances; Z88.0 Allergy status to penicillin; Z88.1 Allergy status to other antibiotic agents; Z88.2 Allergy status to sulfonamides; Z88.6 Allergy status to analgesic agent; Z98.51 Tubal ligation status; Z90.49 Acquired absence of other specified parts of digestive tract; Z98.890 Other specified postprocedural states

== ENCOUNTER 2024-04-19 16:55 | Emergency (ER) | payer OTHER ==
[~2024-04-19] VITALS: Ht 162.5 cm; Wt 108.9 kg
[~2024-04-19 16:55] MED LIST changes: +SEPTDS PO
== END 2024-04-19 19:07 | disposition home or self-care (01) ==
LOC: ED 16:55
DX: S43.401A Unspecified sprain of right shoulder joint, initial encounter (principal); X58.XXXA Exposure to other specified factors, initial encounter; Y93.89 Activity, other specified; Y92.89 Other specified places as the place of occurrence of the external cause; Y99.8 Other external cause status; Z88.0 Allergy status to penicillin; Z88.1 Allergy status to other antibiotic agents; Z88.2 Allergy status to sulfonamides; Z88.8 Allergy status to other drugs, medicaments and biological substances; Z98.890 Other specified postprocedural states; Z90.49 Acquired absence of other specified parts of digestive tract; Z98.51 Tubal ligation status; F17.200 Nicotine dependence, unspecified, uncomplicated

== ENCOUNTER → 2024-05-15 | Outpatient (CLI) | payer OTHER | END | disposition home or self-care (01) | LOC: MRI 00:21 | PROVIDERS: ATTEND Orthopaedic Surgery | DX: M75.31 Calcific tendinitis of right shoulder (principal); M75.51 Bursitis of right shoulder ==

== ENCOUNTER → 2024-06-16 | Day surgery (SDC) | payer OTHER ==
[2024-06-15 11:18] LABS: BUN 6 mg/dl (9-23); CHLORIDE 106 mmol/L (98-107); POTASSIUM 4.2 mmol/L (3.4-5.1)
[~2024-06-16] VITALS: Ht 162.5 cm; Wt 112.0 kg
[~2024-06-16] MED LIST changes: +ALBUMIN 5% 250 ML IV ONE; +Betamethasone ACE/Betamethas 30 MG/5 ML VIAL IJ ONE; +Bupivacaine Hydrochloride/Ep2 30 ML VIAL ONE; +Clindamycin Phosphate 50 ML IV ONE; +Dexamethasone Sodium Phospha 4 MG/ML VIAL IV ONE; +EPINEPHrine Hydrochloride 1 MG/ML AMP ONE; +GLYCOPYRROLATE 0.4 MG/2 ML VIAL IV ONE; +HYDROCODONE-AC1 EAC1 PO; +Lactated Ringer's Solution 1,000 ML IV ONE; +Lactated Ringer's Solution 1,000 ML IV SCH; +Lidocaine Hydrochloride 5 ML VIAL IV ONE; +Midazolam Hydrochloride 2 MG/2 ML VIAL IV ONE; +Ondansetron Hydrochloride 4 MG/2 ML VIAL IV ONE; +PROPOFOL 200 MG/20 ML VIAL IV ONE; +Phenylephrine Hydrochloride 1 MG/10 ML SYRINGE IV ONE; +Ropivacaine Hydrochloride 5 MG/ML 20 ML AMP IJ ONE; +SEVOFLURANE 250 ML BOT INH ONE; +diphenhydrAMINE hydrochloride 50 MG/ML VIAL IV ONE; +ePHEDrine Sulfate 25 MG/5 ML SYRINGE IV ONE; +fentaNYL CITRATE 100 MCG/2 ML VIAL IV ONE
[2024-06-16 07:15] VITALS: BP 121/56
[2024-06-16 10:42] VITALS: BP 126/57
[2024-06-16 11:00] VITALS: BP 112/60
[2024-06-16 11:15] VITALS: BP 109/51
[2024-06-16 11:30] VITALS: BP 108/49
[2024-06-16 11:42] VITALS: BP 125/66
== END | disposition home or self-care (01) ==
LOC: SDC 06-12 08:45
PROVIDERS: ATTEND Orthopaedic Surgery
DX: M75.31 Calcific tendinitis of right shoulder (principal); M75.01 Adhesive capsulitis of right shoulder; M75.51 Bursitis of right shoulder; M65.811 Other synovitis and tenosynovitis, right shoulder; M1A.9XX1 Chronic gout, unspecified, with tophus (tophi); I10 Essential (primary) hypertension; G43.909 Migraine, unspecified, not intractable, without status migrainosus; J45.909 Unspecified asthma, uncomplicated; F41.9 Anxiety disorder, unspecified; F31.9 Bipolar disorder, unspecified; F17.210 Nicotine dependence, cigarettes, uncomplicated; Z98.51 Tubal ligation status; Z98.891 History of uterine scar from previous surgery; Z90.49 Acquired absence of other specified parts of digestive tract; Z86.16 Personal history of COVID-19; Z87.440 Personal history of urinary (tract) infections; Z98.890 Other specified postprocedural states; Z79.899 Other long term (current) drug therapy; Z88.0 Allergy status to penicillin; Z88.1 Allergy status to other antibiotic agents; Z88.2 Allergy status to sulfonamides; Z88.8 Allergy status to other drugs, medicaments and biological substances; Z82.3 Family history of stroke; Z82.49 Family history of ischemic heart disease and other diseases of the circulatory system

== ENCOUNTER 2024-08-31 19:07 | Emergency (ER) | payer OTHER ==
[~2024-08-31] VITALS: Ht 167.6 cm; Wt 113.4 kg
[~2024-08-31 19:07] MED LIST changes: -ALBUMIN 5% 250 ML IV ONE; -Betamethasone ACE/Betamethas 30 MG/5 ML VIAL IJ ONE; -Bupivacaine Hydrochloride/Ep2 30 ML VIAL ONE; -Clindamycin Phosphate 50 ML IV ONE; -Dexamethasone Sodium Phospha 4 MG/ML VIAL IV ONE; -EPINEPHrine Hydrochloride 1 MG/ML AMP ONE; -GLYCOPYRROLATE 0.4 MG/2 ML VIAL IV ONE; -Lactated Ringer's Solution 1,000 ML IV ONE; -Lactated Ringer's Solution 1,000 ML IV SCH; -Lidocaine Hydrochloride 5 ML VIAL IV ONE; -Midazolam Hydrochloride 2 MG/2 ML VIAL IV ONE; -Ondansetron Hydrochloride 4 MG/2 ML VIAL IV ONE; -PROPOFOL 200 MG/20 ML VIAL IV ONE; -Phenylephrine Hydrochloride 1 MG/10 ML SYRINGE IV ONE; -Ropivacaine Hydrochloride 5 MG/ML 20 ML AMP IJ ONE; -SEVOFLURANE 250 ML BOT INH ONE; -diphenhydrAMINE hydrochloride 50 MG/ML VIAL IV ONE; -ePHEDrine Sulfate 25 MG/5 ML SYRINGE IV ONE; -fentaNYL CITRATE 100 MCG/2 ML VIAL IV ONE
[2024-08-31] MEDS ORDERED: Ondansetron Hydrochloride 4 MG TAB SL ONE (19:50)
[2024-08-31] MEDS ORDERED: Acetaminophen/Hydrocodone 5 MG/325 MG TABLET PO ONE (19:50)
[2024-08-31] MEDS ORDERED: CLINDAMYCIN HCL 300 MG CAPSULE PO ONE (19:50)
== END 2024-08-31 19:57 | disposition home or self-care (01) ==
LOC: ED 19:07
DX: K02.9 Dental caries, unspecified (principal); F17.200 Nicotine dependence, unspecified, uncomplicated; Z88.8 Allergy status to other drugs, medicaments and biological substances; Z88.0 Allergy status to penicillin; Z88.1 Allergy status to other antibiotic agents; Z88.2 Allergy status to sulfonamides; Z88.6 Allergy status to analgesic agent; Z79.899 Other long term (current) drug therapy; Z98.890 Other specified postprocedural states; Z90.49 Acquired absence of other specified parts of digestive tract

== ENCOUNTER 2024-09-05 16:43 | Emergency (ER) | payer OTHER ==
[~2024-09-05] VITALS: Ht 162.5 cm; Wt 115.7 kg
[2024-09-05] MEDS ORDERED: Tdap Vaccine 0.5 ML SYR (Adult Vaccine) IM ONE (17:00)
[2024-09-05 17:28] LABS: BASO # 0.1 10*3/uL (0.0-0.1); BASO % 0.5 % (0.0-1.0); EOS # 0.4 10*3/uL (0.0-0.4); EOS % 3.8 % (1.0-4.0); HEMATOCRIT 42.1 % (37.0-47.0); MEAN CELL VOLUME 85.1 fl (81.0-99.0); MEAN CORPUSCULAR HGB 28.7 pg (27.0-31.0); MEAN CORPUSCULAR HGB CONC 33.7 g/dl (33.0-37.0); MEAN PLATELET VOLUME 9.9 fl (9.6-12.3); MONO # 0.7 10*3/uL (0.1-1.0); MONO % 6.4 % (3.0-9.0); NEUT # 6.7 10*3/uL (2.3-7.9); PLATELET COUNT AUTOMATED 242 10*3/uL (130-400); RED BLOOD COUNT 4.95 10*6/uL (4.10-5.10); RED CELL DISTRI WIDTH 12.2 % (0-14.5); WHITE BLOOD COUNT 11.2 10*3/uL (4.8-10.8)
[2024-09-05 17:54] LABS: BUN 9 mg/dl (9-23); CHLORIDE 108 mmol/L (98-107); POTASSIUM 3.4 mmol/L (3.4-5.1)
[2024-09-05] MEDS ORDERED: LASIX20 MG PO (19:50)
== END 2024-09-05 19:52 | disposition home or self-care (01) ==
LOC: ED 16:43
PROVIDERS: Nurse Practitioner Family
DX: I89.0 Lymphedema, not elsewhere classified (principal); R22.41 Localized swelling, mass and lump, right lower limb; R22.42 Localized swelling, mass and lump, left lower limb; R07.89 Other chest pain; M25.512 Pain in left shoulder; R06.02 Shortness of breath; L53.9 Erythematous condition, unspecified; F17.200 Nicotine dependence, unspecified, uncomplicated; Z88.8 Allergy status to other drugs, medicaments and biological substances; Z88.0 Allergy status to penicillin; Z88.1 Allergy status to other antibiotic agents; Z88.2 Allergy status to sulfonamides; Z88.6 Allergy status to analgesic agent; Z79.899 Other long term (current) drug therapy; Z98.890 Other specified postprocedural states; Z90.49 Acquired absence of other specified parts of digestive tract

== ENCOUNTER → 2024-09-21 | Outpatient (CLI) | payer OTHER ==
[~2024-09-21] MED LIST changes: +LASIX20 MG PO
== END | disposition home or self-care (01) ==
LOC: CARD 10:28
PROVIDERS: ATTEND Internal Medicine Cardiovascular Disease
DX: R94.31 Abnormal electrocardiogram [ECG] [EKG] (principal); R07.89 Other chest pain; R60.0 Localized edema

== ENCOUNTER → 2024-10-07 | Outpatient (CLI) | payer OTHER ==
[2024-10-07 11:37] LABS: ALKALINE PHOSPHATASE 98 U/L (46-116); BUN 7 mg/dl (9-23); CHLORIDE 106 mmol/L (98-107); CHOLESTEROL 145 mg/dL (<200); LDL CHOLESTEROL 71 mg/dL (9-159); POTASSIUM 4.1 mmol/L (3.4-5.1); SGPT/ALT 30 U/L (5-49); TOTAL PROTEIN 6.6 gm/dL (6.0-8.0); TRIGLYCERIDES 194 mg/dl (<150); URIC ACID 6.1 mg/dL (3.1-7.8)
[2024-10-07 12:01] LABS: VITAMIN D, 25-HYDROXY 26.1 ng/mL (30-100)
== END | disposition home or self-care (01) ==
LOC: LAB 10:26
PROVIDERS: ATTEND Nurse Practitioner Family
DX: K75.4 Autoimmune hepatitis (principal); M10.9 Gout, unspecified; E55.9 Vitamin D deficiency, unspecified; Z13.1 Encounter for screening for diabetes mellitus; Z13.220 Encounter for screening for lipoid disorders; R53.82 Chronic fatigue, unspecified

== ENCOUNTER 2024-12-13 19:40 | Emergency (ER) | payer OTHER ==
[~2024-12-13] VITALS: Ht 162.5 cm; Wt 115.7 kg
[2024-12-13] MEDS ORDERED: Dicyclomine Hydrochloride 20 MG/10 ML OSYR PO STA (20:32)
[2024-12-13] MEDS ORDERED: MG-AL HYDROXIDE/SIMETICONE 30 ML UDC PO STA (20:32)
[2024-12-13] MEDS ORDERED: SODIUM CHLORIDE 0.9% 1,000 ML IV ONE (20:35)
[2024-12-13 21:04] LABS: BASO # 0.1 10*3/uL (0.0-0.1); BASO % 0.5 % (0.0-1.0); EOS # 0.6 10*3/uL (0.0-0.4); EOS % 4.9 % (1.0-4.0); MEAN CELL VOLUME 85.9 fl (81.0-99.0); MEAN CORPUSCULAR HGB 28.6 pg (27.0-31.0); MEAN PLATELET VOLUME 10.5 fl (9.6-12.3); MONO # 0.8 10*3/uL (0.1-1.0); MONO % 7.1 % (3.0-9.0); NEUT # 7.1 10*3/uL (2.3-7.9); NEUT % 62.8 % (47.0-73.0); NUCLEATED RED BLOOD CELL 0.0 % (0.0-0.0); NUCLEATED RED BLOOD CELL 0.0 10*3/uL (0.0-0.0); PLATELET COUNT AUTOMATED 230 10*3/uL (130-400); RED CELL DISTRI WIDTH 12.4 % (0-14.5)
[2024-12-13 21:06] LABS: BILIRUBIN Negative (Negative); BLOOD 1+ (Negative); CLARITY Clear (Clear); COLOR Yellow (Yellow); KETONE Negative (Negative); LEUKO ESTERASE Negative (Negative); NITRITE Negative (Negative); PH 6.5 (4.5-8.0); SPECIFIC GRAVITY 1.010 (1.001-1.030); UROBILINOGEN 1.0 E.U./dl (0.0-1.0)
[2024-12-13 21:18] LABS: BACTERIA TRACE; WBC 0-2 wbc/hpf (0-5)
[2024-12-13 21:25] LABS: BUN 8 mg/dl (9-23); SGPT/ALT 47 U/L (5-49)
[2024-12-13] MEDS ORDERED: FAMOTIDINE 20 MG TAB PO ONE (23:15)
[2024-12-13] MEDS ORDERED: Cyclobenzaprine Hydrochlorid 10 MG TAB PO ONE (23:20)
[2024-12-13] MEDS ORDERED: CYCLOBENZAPRINE5 M3 PO (23:27)
== END 2024-12-13 23:40 | disposition home or self-care (01) ==
LOC: ED 19:40
PROVIDERS: Nurse Practitioner
DX: S29.012A Strain of muscle and tendon of back wall of thorax, initial encounter (principal); K52.9 Noninfective gastroenteritis and colitis, unspecified; K20.90 Esophagitis, unspecified without bleeding; F17.210 Nicotine dependence, cigarettes, uncomplicated; Z88.0 Allergy status to penicillin; Z88.1 Allergy status to other antibiotic agents; Z88.8 Allergy status to other drugs, medicaments and biological substances; Z98.51 Tubal ligation status; Z98.890 Other specified postprocedural states; Z90.49 Acquired absence of other specified parts of digestive tract; X58.XXXA Exposure to other specified factors, initial encounter; Y93.89 Activity, other specified; Y92.89 Other specified places as the place of occurrence of the external cause; Y99.8 Other external cause status

== ENCOUNTER 2025-03-09 17:44 | Emergency (ER) | payer OTHER ==
[~2025-03-09 17:44] MED LIST changes: +CYCLOBENZAPRINE5 M3 PO
[2025-03-09] MEDS ORDERED: Acetaminophen/Oxycodone 5 MG/325 MG TABLET PO ONE (18:25)
[2025-03-09] MEDS ORDERED: MELOXICAM15 MG PO (18:47)
== END 2025-03-09 19:06 | disposition home or self-care (01) ==
LOC: ED 17:44
DX: S63.91XA Sprain of unspecified part of right wrist and hand, initial encounter (principal); S63.501A Unspecified sprain of right wrist, initial encounter; F17.210 Nicotine dependence, cigarettes, uncomplicated; Z98.890 Other specified postprocedural states; Z90.49 Acquired absence of other specified parts of digestive tract; Z88.0 Allergy status to penicillin; Z88.1 Allergy status to other antibiotic agents; Z88.8 Allergy status to other drugs, medicaments and biological substances; I10 Essential (primary) hypertension; J45.909 Unspecified asthma, uncomplicated; F41.9 Anxiety disorder, unspecified; W10.9XXA Fall (on) (from) unspecified stairs and steps, initial encounter; Y93.89 Activity, other specified; Y92.89 Other specified places as the place of occurrence of the external cause; Y99.8 Other external cause status

== ENCOUNTER 2025-03-16 14:51 | Emergency (ER) | payer OTHER ==
[~2025-03-16] VITALS: Ht 162.5 cm; Wt 115.7 kg
[~2025-03-16 14:51] MED LIST changes: +MELOXICAM15 MG PO
[2025-03-16] MEDS ORDERED: HYDROCODONE-AC1 EAC1 PO (18:55)
== END 2025-03-16 19:26 | disposition home or self-care (01) ==
LOC: ED 14:51
DX: S92.002A Unspecified fracture of left calcaneus, initial encounter for closed fracture (principal); I10 Essential (primary) hypertension; F41.9 Anxiety disorder, unspecified; J45.909 Unspecified asthma, uncomplicated; F17.210 Nicotine dependence, cigarettes, uncomplicated; Z88.0 Allergy status to penicillin; Z88.1 Allergy status to other antibiotic agents; Z88.8 Allergy status to other drugs, medicaments and biological substances; Z98.890 Other specified postprocedural states; Z90.49 Acquired absence of other specified parts of digestive tract; W16.02 Fall into swimming pool striking bottom; Y93.89 Activity, other specified; Y92.89 Other specified places as the place of occurrence of the external cause; Y99.8 Other external cause status

== ENCOUNTER → 2025-04-02 | Outpatient (CLI) | payer OTHER | END | disposition home or self-care (01) | LOC: ORTHO 13:12 | PROVIDERS: ATTEND Orthopaedic Surgery | DX: S82.899A Other fracture of unspecified lower leg, initial encounter for closed fracture (principal); X58.XXXA Exposure to other specified factors, initial encounter; Y93.89 Activity, other specified; Y92.89 Other specified places as the place of occurrence of the external cause; Y99.8 Other external cause status ==

== ENCOUNTER → 2025-04-10 | Outpatient (CLI) | payer OTHER | END | disposition home or self-care (01) | LOC: CT 00:10 | PROVIDERS: ATTEND Orthopaedic Surgery | DX: S92.215A Nondisplaced fracture of cuboid bone of left foot, initial encounter for closed fracture (principal); M77.32 Calcaneal spur, left foot; X58.XXXA Exposure to other specified factors, initial encounter; Y93.89 Activity, other specified; Y92.89 Other specified places as the place of occurrence of the external cause; Y99.8 Other external cause status ==